=== PATIENT | male | born 1975 | race Caucasian/White ===

== ENCOUNTER 2019-09-26 17:29 | Emergency (ER) | payer OTHER, SELFPAY ==
[2019-09-26 17:47] VITALS: BP 144/85; PULSE 77; RESP 18; TEMP 36.2; O2SAT 96; BMI 35.6
[2019-09-26 18:23] LABS: Influenza A - CEPHEID Flu A NEGATIVE (NEGATIVE); Influenza B - CEPHEID Flu B NEGATIVE (NEGATIVE)
[2019-09-26] MEDS: ACETAMINOPHEN 325 MG TABLET 650 MG PO (18:41)
[2019-09-26] MEDS: IBUPROFEN 400 MG TABLET PO (18:41)
--- NOTE | 2019-09-26 19:09 | ED.URI ---
HPI - URI/Sore Throat <PARVIZ Pereira - Last Filed: 09/26/19 19:29> General Chief Complaint: Upper Respiratory Symptoms Stated Complaint: chest tight,bad sore throat, aches, fever Time Seen by Provider: 09/26/19 18:04 Source: patient Mode of arrival: Ambulatory Limitations: no limitations History of Present Illness HPI Narrative: This is a 44-year-old male, nonsmoker, who presents to ED with concerns for alvarez virus exposure. Patient had a contact with his co-worker about a week ago who is currently self quarantine after he was expososed from his significant other who was diagnosed with coronal virus. Patient started his symptoms about 5 days ago with sore throat chest tightness and runny nose which got worse with body aches, chills, subjective fever since yesterday. Patient also reports decreased appetite and loose stools. Patient denies recent foreign travel. Patient's has MS and his concerned for his . Patient denies chronic medical illnesses. Related Data Previous Rx's Medication Instructions Recorded albuterol sulfate [Proventil HFA] 1 puff INH SEE INSTRUCTIONS #17 gm 10/02/16 lisinopril 20 mg tablet 20 mg PO BID #180 tab 09/21/19 Allergies Allergy/AdvReac Type Severity Reaction Status Date / Time latex [LATEX] Allergy Unknown ANAPHYLAXSI Verified 09/21/19 09:00 S Review of Systems <PARVIZ Pereira - Last Filed: 09/26/19 19:29> Review of Systems Narrative: General: Denies(+) subjective fever, (+) chills, fatigue, malaise, sweats. HEENT: Denies sinus pain, ear pain, (+) sore throat, difficulty swallowing, dizziness. Respiratory: Denies dyspnea, (+) mild cough, wheezing, hemoptysis, sputum. Cardiovascular: Denies (+) chest tightness, palpitations, orthopnea, edema. Gastrointestinal: Denies nausea, vomiting, abdominal pain, (+) diarrhea, constipation, melena. : Denies dysuria, frequency, incontinence, hematuria, urinary retention. Musculoskeletal: Denies weakness, joint pain or bony pain. Skin: Denies rash, skin lesions, or other. Neurologic: Denies weakness, headache, numbness, change in speech, confusion, seizures, incoordination. Psychiatric: No concerning psychosocial issues. 12-point review of systems is negative except for those stated above. Patient History <PARVIZ Pereira - Last Filed: 09/26/19 19:29> Medical History Allergic rhinitis (Acute) Hypertension (Chronic ~2016) Family History Father History of heart disease Grandfather History of heart disease Grandmother Cancer Social History Smoking Status: Never smoker Smoking Status: Never smoker Exam <PARVIZ Pereira - Last Filed: 09/26/19 19:29> Narrative Exam Narrative: GEN: Alert, oriented x 3, well appearing and nourished, and in no acute distress. Head: Normal cephalic, atraumatic. No scalp or temporal tenderness, palpable mass or rash. EYES: Pupils are equal, round, and reactive to light and accommodation. Extraocular muscles are intact bilaterally. There is no subconjunctival hemorrhage, exudate and sclera non-icteric. ENT: Bilateral auditory canals and tympanic membranes clear. Hearing grossly intact. Nose without bleeding, purulent discharge or deviation. Turbinates swollen and a rate much test. Facial sinuses nontender to palpate. Mucous membrane moist, no mucosal lesion. Throat with erythema but no tonsillar hypertrophy or exudate. Uvula in midline, airway patent. Neck: Trachea in midline. No JVD, non-tender without lymphadenopathy. No masses or thyroid megaly. Supple, non-tender and no meningeal signs. CARDIAC: Normal regular rate and rhythm without murmurs, gallops, or rubs. No chest wall tenderness. No peripheral edema, cyanosis or pallor. Capillary refill is less than 2 seconds. RESPIRATORY: Lungs are clear to auscultate bilaterally. No cough, wheezes, rales, or rhonchi. No stridor, respiratory distress, increase work of breathing, or accessary muscle used. ABD: Abdomen soft, nontender and non-distended. No guarding or rebound tenderness to palpate. Bowel sounds are normal in all 4 quadrants. There is no palpable masses or organomegaly. EXT: Full painless ROM of all extremities with no loss of sensation, strength, effusion or edema. SKIN: Warm, dry, normal color for patient. No erythema, lesions or rash over visible areas. BACK: Nontender without deformity or crepitance. No flank tenderness. NEUROLOGICAL: Alert and oriented to place, time and person. Sensation and motor function intact bilaterally. No facial droops, dysphasia. PSYCHIATRIC: Good judgement and reason, without hallucinations, abnormal affect or abnormal behaviors during the examination. Initial Vital Signs Initial Vital Signs: Vital Signs Temperature 97.1 F L 09/26/19 17:47 Pulse Rate 77 09/26/19 17:47 Respiratory Rate 18 09/26/19 17:47 Blood Pressure 144/85 H 09/26/19 17:47 Pulse Oximetry 96 09/26/19 17:47 <Michael Marinelli DO - Last Filed: 09/26/19 20:35> Initial Vital Signs Initial Vital Signs: Vital Signs Temperature 97.1 F L 09/26/19 17:47 Pulse Rate 77 09/26/19 17:47 Respiratory Rate 18 09/26/19 17:47 Blood Pressure 144/85 H 09/26/19 17:47 Pulse Oximetry 96 09/26/19 17:47 Scores <PARVIZ Pereira - Last Filed: 09/26/19 19:29> GCS [place] coma scale eye opening: Spontaneous [place] coma scale verbal response: Orientated [place] coma scale motor response: Obey commands [place] coma scale total score: 15 Course <PARVIZ Pereira - Last Filed: 09/26/19 19:29> Orders Ordered: ED Orders 09/26/19 17:42 Influenza A & B (PCR) Stat Strep Grp A by PCR Rapid Stat Discontinued Medications Acetaminophen (Tylenol) 650 mg PO NOW ONE Stop: 09/26/19 18:20 Last Admin: 09/26/19 18:41 Dose: 650 mg Documented by: DIO Ibuprofen (Advil) 400 mg PO NOW ONE Stop: 09/26/19 18:20 Last Admin: 09/26/19 18:41 Dose: 400 mg Documented by: DIO Vital Signs Vital signs: Vital Signs - 8 hr 09/26/19 17:47 09/26/19 19:45 Temperature 97.1 F L 99.1 F Pulse Rate 77 80 Respiratory Rate 18 20 Blood Pressure 144/85 H Blood Pressure [Left Arm] 125/72 Pulse Oximetry 96 99 <Michael Marinelli DO - Last Filed: 09/26/19 20:35> Orders Ordered: ED Orders 09/26/19 17:42 Influenza A & B (PCR) Stat Strep Grp A by PCR Rapid Stat Discontinued Medications Acetaminophen (Tylenol) 650 mg PO NOW ONE Stop: 09/26/19 18:20 Last Admin: 09/26/19 18:41 Dose: 650 mg Documented by: DIO Ibuprofen (Advil) 400 mg PO NOW ONE Stop: 09/26/19 18:20 Last Admin: 09/26/19 18:41 Dose: 400 mg Documented by: DIO Vital Signs Vital signs: Vital Signs - 8 hr 09/26/19 17:47 09/26/19 19:45 Temperature 97.1 F L 99.1 F Pulse Rate 77 80 Respiratory Rate 18 20 Blood Pressure 144/85 H Blood Pressure [Left Arm] 125/72 Pulse Oximetry 96 99 MDM - URI/Sore Throat <PARVIZ Pereira - Last Filed: 09/26/19 19:29> Differential Diagnosis Differential diagnosis: Likely upper respiratory infection, viral infection, influenza and pharyngitis Medical Records Attestation: I reviewed the patient's medical records. Lab Data Attestation: I reviewed the patient's lab results. Labs: Lab Results 09/26/19 09/26/19 Range/Units 17:42 17:42 Influenza A (RT-PCR) Flu a negative (NEGATIVE) Influenza B (RT-PCR) Flu b negative (NEGATIVE) Group A Strep (PCR) Negative Point of Care Testing Rapid Strep A Negative MDM Narrative Medical decision making narrative: This is a 44-year-old gentleman who presents to ED with concerns for coronavirus exposure and upper respiratory infection symptoms. Patient reports chest tightness, runny nose, sore throat, body aches, chills, subjective fever. Flu swab was negative today. Strep throat test was negative. Patient was medicated with Tylenol which patient found to be helpful with his discomfort. Coronary virus test is send out and patient informed that he will be in contact with the result. Work off note provided for 5 days until patient hears back with the result and advised to self isolate himself with supportive care and rest. Return precautions were discussed with the patient and patient verbalized understanding in agreement with the treatment plan. <Michael Marinelli, DO - Last Filed: 09/26/19 20:35> Lab Data Labs: Lab Results 09/26/19 09/26/19 Range/Units 17:42 17:42 Influenza A (RT-PCR) Flu a negative (NEGATIVE) Influenza B (RT-PCR) Flu b negative (NEGATIVE) Group A Strep (PCR) Negative Point of Care Testing Rapid Strep A Negative Discharge Plan Departure Patient Disposition: Home Clinical Impression: Viral infection Upper respiratory infection Qualifiers: URI type: unspecified URI Qualified Code(s): J06.9 - Acute upper respiratory infection, unspecified Discharge Date/Time: 09/26/19 19:48 Instructions: DI for Viral Upper Respiratory Infection -- Adult Activity Restrictions/Additional Instructions: You have been diagnosed with [ viral respiratory illness. Strep throat swab was negative. Influenza test was negative. Alvarez virus test has been sent out to lab and this will not be resulted till 3-5 days. Please self quarantine your self if you are concerned for alvarez virus and until you hear from us. If the test returns with positive result, you will have to self isolate up to 2-3 weeks until you are fever free for 72 hours or feeling well whichever comes later. Please continue with supportive care with [id number] Tylenol and or Motrin as needed for discomfort. Warm salt water gargle helps with sore throat. You can use throat lozenges as well. Good hand/cough hygiene will help prevent transmitting illness to others]. What to do: *Take your medications as directed. You can take [id number] Mucinex for cold symptoms. Please hydrate yourself well and rest. *Follow up with your primary care provider, call for an appointment. Let them know you were seen in the ED and that we asked you to be seen in follow up. *Return to ED if you have any new, worsening, or concerning symptoms, such as [chest pain, breathing difficulty, unable to tolerate fluids, fever not managed with Tylenol and or Motrin, or any acute concerns]. Prescriptions: No Action albuterol sulfate [Proventil HFA] 90 MCG/PUFF HFA aerosol inhaler 1 puff INH SEE INSTRUCTIONS Qty: 17 RF: 6 lisinopril 20 mg tablet 20 mg PO BID Qty: 180 RF: 3 Referrals: Celian Donis ARNP [[facility] [employer]] - Stand Alone Forms: Work Release Note <Michael Marinelli DO - Last Filed: 09/26/19 20:35> Sign Out Provider Sign Out Attestation: Dr Marinelli Co-Sign Statement: I was available for consultation during this patient's emergency department visit. This chart is signed by myself for administrative purposes only. I did not have direct contact with this patient during this visit. They were seen independently by the APC.
[2019-09-26 19:10] LABS: Strep Grp A by PCR Rapid Negative
[2019-09-26 19:45] VITALS: BP 125/72; PULSE 80; RESP 20; TEMP 37.3; O2SAT 99
[2019-10-04 12:22] LABS: COVID19 Sendout Not Detected (Not Detected)
== END 2019-09-26 19:48 | disposition home or self-care (01) ==
PROVIDERS: Emergency Medicine; Emergency Provider Nurse Practitioner Family; Family Provider Family Medicine
DX: Z20.828 Contact with and (suspected) exposure to other viral communicable diseases (principal); J06.9 Acute upper respiratory infection, unspecified
CPT/HCPCS: 87502; 87635; 87651; 87880; 99282; 99283

== ENCOUNTER 2020-02-09 23:52 | Emergency (ER) | payer OTHER, SELFPAY ==
[2020-02-09 23:57] VITALS: BP 186/106
[2020-02-09 23:58] VITALS: PULSE 71; RESP 19; O2SAT 100
[2020-02-10] VITALS (7 sets, daily range): BP systolic 135–186; BP diastolic 87–108; PULSE 63–87; RESP 10–23; TEMP 36.2; O2SAT 95–100; BMI 35.2
--- NOTE | 2020-02-10 00:02 | DI.RAD.S_ITS ---
PROCEDURE: XR CHEST 1V INDICATIONS: chest pain TECHNIQUE: One view of the chest was acquired. COMPARISON: [facility], , CHEST 1 VIEW, 07/29/2017, 16:22. FINDINGS: Surgical changes and devices: None. Lungs and pleura: Lungs are clear. No pleural effusions or pneumothorax. Mediastinum: Mediastinal contours appear normal. Heart size is normal. Bones and chest wall: No suspicious bony lesions. Overlying soft tissues appear unremarkable. IMPRESSION: No acute cardiopulmonary disease process. Dictated by: Lalitha Chow MD, PhD on 02/10/2020 at 8:01 Approved by: Lalitha Chow MD, PhD on 02/10/2020 at 8:01
[2020-02-10 00:12] LABS: Add Manual Diff / Slide Review NO; Basophils Absolute Auto 100 /uL (0-100); Basophils Percent Auto 1.2 % (0-2); Eosinophils Absolute Auto 200 /uL (0-450); Hematocrit 41.7 % (41-53); Lymphocytes Absolute Auto 2600 /uL (1100-4500); Lymphocytes Percent Auto 32.6 % (25-40); Mean Corpuscular HGB Conc 33.7 % (30-36); Mean Corpuscular Hemoglobin 29.5 PG (26-34); Mean Corpuscular Volume 87.5 fL (80-100); Monocytes Absolute Auto 700 /uL (0-900); Monocytes Percent Auto 8.8 % (3-14); Neutrophils Absolute Auto 4300 /uL (1500-7000); Neutrophils Percent Auto 54.4 % (50-75); Platelet Count 188 X10^3/uL (150-400); Red Blood Cell Count 4.76 X10^6/uL (4.5-5.9); Red Cell Distribution Width 13.4 % (11.6-14.8); White Blood Cell Count 7.9 X10^3/uL (4.5-11.0)
[2020-02-10 00:13] LABS: Prothrombin Time 11.8 SECONDS (10.1-12.7)
[2020-02-10 00:15] LABS: PTT Partial Thromboplastin Tim 37 SECONDS (26.4-36.2)
[2020-02-10 00:17] LABS: Alanine Aminotransferase 35 IU/L (<50); Albumin 4.7 g/dL (3.5-5.0); Albumin Globulin Ratio 1.5 (1.0-2.8); Alkaline Phosphatase 50 U/L (38-126); Aspartate Aminotransferase 33 IU/L (17-59); BUN Creatinine Ratio 20.4 (6-22); Bilirubin Total 0.4 mg/dL (0.2-1.3); Blood Urea Nitrogen 21 mg/dL (9-20); Carbon Dioxide 31 mmol/L (22-32); Chloride 99 mmol/L (98-107); Creatine Kinase 213 U/L (55-170); Estimated Glomerular Filt Rate > 60.0 mL/min (>60); Globulin 3.1 g/dL (1.7-4.1); Glucose 93 mg/dL (70-100); HEMOLYSIS < 15 (0-50); Lipase 80 U/L (23-300); Potassium 3.8 mmol/L (3.4-5.1); Sodium 138 mmol/L (137-145); Total Protein 7.8 g/dL (6.3-8.2)
--- NOTE | 2020-02-10 00:23 | ED_ITS ---
HPI - Chest Pain General Chief Complaint: Chest Pain Stated Complaint: chest discomfort BP 170/120 lightheaded Time Seen by Provider: 02/09/20 23:54 Source: patient Mode of arrival: Family Vehicle Limitations: no limitations History of Present Illness HPI narrative: 45-year-old gentleman with a history of hypertension presents with 3 days of increased blood pressures despite taking his usual lisinopril 20 mg b.i.d., chest tightness, near syncope/dizziness/head fullness feeling when his blood pressures are elevated, exertional dyspnea, and increasing fatigue. No fevers, cough, chills, vomiting, diarrhea, abdominal pain, lower extremity edema, palpitations, numbness/tingling/acute neurologic changes aside from the head fullness. Related Data Previous Rx's Medication Instructions Recorded lisinopril 20 mg tablet 20 mg PO BID #180 tab 10/12/19 albuterol sulfate 90 mcg/actuation 1 puff INHALATION Q4-6H PRN #17 10/14/19 aerosol inhaler gram Allergies Allergy/AdvReac Type Severity Reaction Status Date / Time latex [LATEX] Allergy Unknown ANAPHYLAXSI Verified 01/14/20 10:14 S Review of Systems Review of Systems Narrative: Pertinent positive and negative findings as per HPI Remainder of review of systems is otherwise unremarkable for Constitutional: Fevers, chills, weakness ENT: No sore throat, neck pain, ear pain : Dysuria, hematuria, flank pain MS: Muscle weakness, numbness, joint swelling or warmth Skin: Rashes, nonhealing lesions Endocrine: heat or cold intolerance, very dry skin Patient History Medical History Allergic rhinitis (Acute) Encounter for wellness examination in adult (Acute) Hypertension (Chronic ~2016) Witnessed apneic spells (Acute) Family History Father History of heart disease Grandfather History of heart disease Grandmother Cancer Social History Smoking Status: Never smoker Smoking Status: Never smoker alcohol intake frequency: a few times a week Substance Use Type: does not use Exam Narrative Exam Narrative: General: Healthy appearing, in no acute distress. Able to give a complete and coherent history. Well-nourished well-developed HEENT: Moist mucous membranes, normal sclera with reactive pupils, Neck: No JVD, supple Respiratory: Lungs are clear to auscultation, no wheezing no rales no rhonchi. Full and symmetrical air movement Cardiac: Regular rate and rhythm no murmurs no bruits Abdomen: Soft nontender good bowel tones, no flank pain Skin: Warm and dry, no rashes Neurologic: Grossly neurologically intact with no obvious asymmetries or abnormalities Extremities: No trauma, well perfused Psych: Cooperative, appropriate insight and affect Initial Vital Signs Initial Vital Signs: Vital Signs Blood Pressure 186/106 H 02/09/20 23:57 Course Orders Ordered: ED Orders 02/10/20 00:00 Complete Blood Count AUTO DIFF Stat Comprehensive Metabolic Panel Stat Lipase Stat Partial Thromboplastin Time Stat Prothrombin Time INR Stat Troponin & CK Cardiac Panel Stat 02/10/20 00:02 XR chest 1V Stat EKG-12 Lead Stat Discontinued Medications Amlodipine Besylate (Norvasc) 10 mg PO NOW ONE Stop: 02/10/20 00:45 Last Admin: 02/10/20 00:58 Dose: 10 mg Documented by: ES Vital Signs Vital signs: Vital Signs - 8 hr 02/09/20 23:57 02/09/20 23:58 02/10/20 00:00 Temperature Pulse Rate 71 69 Respiratory Rate 19 12 Blood Pressure 186/106 H 168/103 H Pulse Oximetry 100 100 02/10/20 00:03 02/10/20 00:30 02/10/20 01:00 Temperature 97.2 F L Pulse Rate 87 71 66 Respiratory Rate 15 23 10 L Blood Pressure 186/106 H 159/108 H 144/97 H Pulse Oximetry 99 98 97 02/10/20 01:30 02/10/20 02:00 02/10/20 02:30 Temperature Pulse Rate 69 63 65 Respiratory Rate 13 12 11 L Blood Pressure 144/91 H 135/87 142/91 H Pulse Oximetry 96 95 96 MDM - Chest Pain Medical Records Data Attestation: I reviewed the patient's medical records. Lab Data Attestation: I reviewed the patient's lab results. Result diagrams: 02/10/20 00:00 02/10/20 00:00 Labs: Lab Results 02/10/20 02/10/20 02/10/20 Range/Units 00:00 00:00 00:00 WBC 7.9 (4.5-11.0) X10^3/uL RBC 4.76 (4.5-5.9) X10^6/uL Hgb 14.0 (13.5-17.5) g/dL Hct 41.7 (41-53) % MCV 87.5 (80-100) fL MCH 29.5 (26-34) PG MCHC 33.7 (30-36) % RDW 13.4 (11.6-14.8) % Plt Count 188 (150-400) X10^3/uL Neut % (Auto) 54.4 (50-75) % Lymph % (Auto) 32.6 (25-40) % [place] % (Auto) 8.8 (3-14) % Eos % (Auto) 3.0 (2-4) % Baso % (Auto) 1.2 (0-2) % Neut # (Auto) 4300 (1297-1923) /uL Lymph # (Auto) 2600 (4024-7689) /uL [place] # (Auto) 700 (0-900) /uL Eos # (Auto) 200 (0-450) /uL Baso # (Auto) 100 (0-100) /uL PT 11.8 (10.1-12.7) SECONDS INR 1.0 (0.9-1.3) APTT 37 H (26.4-36.2) SECONDS Sodium 138 (137-145) mmol/L Potassium 3.8 (3.4-5.1) mmol/L Chloride 99 (98-107) mmol/L Carbon Dioxide 31 (22-32) mmol/L BUN 21 H (9-20) mg/dL Creatinine 1.03 (0.66-1.25) mg/dL Estimated GFR > 60.0 (>60) mL/min BUN/Creatinine Ratio 20.4 (6-22) Glucose 93 (70-100) mg/dL Calcium 10.0 (8.4-10.2) mg/dL Total Bilirubin 0.4 (0.2-1.3) mg/dL AST 33 (17-59) IU/L ALT 35 (<50) IU/L Alkaline Phosphatase 50 (38-126) U/L Total Creatine Kinase 213 H (55-170) U/L CK-MB (CK-2) 2.71 H (<2.37) ng/mL CK-MB (CK-2) Rel Index 1.3 L (1.5-5.0) % Troponin I < 0.012 (0.01-0.034) ng/mL Total Protein 7.8 (6.3-8.2) g/dL Albumin 4.7 (3.5-5.0) g/dL Globulin 3.1 (1.7-4.1) g/dL Albumin/Globulin Ratio 1.5 (1.0-2.8) Lipase 80 (23-300) U/L Imaging Data Chest x-ray: Attestation: I personally reviewed and interpreted this imaging study as follows: My Impression: Unremarkable chest x-ray. No infiltrates, normal cardiac silhouette, no congestive heart failure, no pleural effusion and normal mediastinum ECG Data Attestation: I personally reviewed and interpreted this ECG as follows: Interpretation: Sinus rhythm at a rate of 72 normal intervals, no acute STT wave changes No ischemic findings MDM Narrative Medical decision making narrative: Three days of increasing cardiovascular and neurologic symptoms in the setting of elevated blood pressure. Etiology is uncertain. No acute coronary syndrome or renal failure at this time. 10 mg of oral amlodipine is added and blood pressure has responded nicely. He is feeling better at this time with no chest pain or dyspnea. He is safe for home discharge. He has a follow-up appointment with his primary care physician later today. Will opt to not discharge him with any medications but will ask him to keep that appointment with his primary care physician so that his blood pressure can be recheck and together he and his primary physician can decide if adding amlodipine to his current regimen will be the best option. Discharge Plan Departure Patient Disposition: Home Clinical Impression: Hypertension Qualifiers: Hypertension type: essential hypertension Qualified Code(s): I10 - Essential (primary) hypertension Instructions: Essential Hypertension Activity Restrictions/Additional Instructions: Thank you for coming in today. Your blood pressure was quite elevated. Your workup including chest x-ray, EKG and blood work was all very reassuring. There is no evidence of a stroke or a heart attack or heart attack like syndrome. No evidence of acute heart failure or other complications of elevated blood pressure that would require hospitalization In the emergency room you received 10 mg of amlodipine and this seemed to work nicely in bringing her blood pressure down. You have an appointment with your primary care physician in about 11 hours. Please keep this appointment. Please let her know that you are given a dose of 10 mg of amlodipine and see how your feeling by mid day including seeing what your blood pressure reading is. Please do take your morning dose of lisinopril today. If you have worsening blood pressure, chest pain, numbness tingling dizziness or other new complaints please return to the emergency room for further evaluation Prescriptions: No Action lisinopril 20 mg tablet 20 mg PO BID Qty: 180 RF: 3 albuterol sulfate [Proventil HFA] 90 mcg/actuation HFA aerosol inhaler 1 puff inhalation Q4-6H PRN (Reason: shortness of breath or wheezing) Qty: 17 RF: 3 Referrals: Celina Donis ARNP [Primary Care Provider] -
[2020-02-10 00:28] LABS: Troponin I < 0.012 ng/mL (0.01-0.034)
[2020-02-10 00:32] LABS: CKMB % Relative Index 1.3 % (1.5-5.0); Creatine Kinase MB 2.71 ng/mL (<2.37)
[2020-02-10] MEDS: AMLODIPINE 2.5 MG TABLET 10 MG PO (00:58)
== END 2020-02-10 03:17 | disposition home or self-care (01) ==
PROVIDERS: Emergency Provider Emergency Medicine; Family Provider Family Medicine; PCP Nurse Practitioner
DX: I10 Essential (primary) hypertension (principal); R06.00 Dyspnea, unspecified; R07.9 Chest pain, unspecified
CPT/HCPCS: 36415; 71045; 80053; 82550; 82553; 83690; 84484; 85025; 85610; 85730; 93005; 99284

== ENCOUNTER → 2020-03-18 13:22 | Outpatient (CLI) | payer OTHER, SELFPAY ==
[2020-03-21 12:03] LABS: COVID19 Sendout Not Detected (Not Detect)
== END ==
PROVIDERS: Family Provider Family Medicine; PCP Nurse Practitioner; Visit Provider Physician Assistant
DX: Z11.59 Encounter for screening for other viral diseases (principal)
CPT/HCPCS: 87635

== ENCOUNTER → 2020-04-01 14:08 | Outpatient (CLI) | payer OTHER, SELFPAY ==
[2020-04-03 15:04] LABS: COVID19 Sendout Not Detected (Not Detect)
== END ==
PROVIDERS: Family Provider Family Medicine; PCP Nurse Practitioner; Visit Provider Physician Assistant
DX: Z11.59 Encounter for screening for other viral diseases (principal)
CPT/HCPCS: 87635

== ENCOUNTER 2020-11-13 22:23 | Emergency (ER) | payer OTHER, SELFPAY ==
[2020-11-13 22:36] VITALS: BP 168/98; PULSE 90; RESP 20; TEMP 37.1; O2SAT 100
--- NOTE | 2020-11-13 22:36 | DI.RAD.S_ITS ---
PROCEDURE: XR CHEST 1V INDICATIONS: chest pain TECHNIQUE: One view of the chest was acquired. COMPARISON: [facility], CR, XR CHEST 1V, 02/10/2020, 0:05. FINDINGS: Surgical changes and devices: None. Lungs and pleura: Lungs are clear. No pleural effusions or pneumothorax. Mediastinum: Mediastinal contours appear normal. Heart size is normal. Bones and chest wall: No suspicious bony lesions. Overlying soft tissues appear unremarkable. IMPRESSION: No acute cardiopulmonary disease process. Dictated by: Lalitha Chow MD, PhD on 11/14/2020 at 9:54 Approved by: Lalitha Chow MD, PhD on 11/14/2020 at 9:56
[2020-11-13 22:47] LABS: Add Manual Diff / Slide Review NO; Basophils Absolute Auto 100 /uL (0-100); Eosinophils Absolute Auto 300 /uL (0-450); Eosinophils Percent Auto 2.9 % (2-4); Hematocrit 40.9 % (41-53); Hemoglobin 13.6 g/dL (13.5-17.5); Lymphocytes Absolute Auto 2300 /uL (1100-4500); Lymphocytes Percent Auto 25.1 % (25-40); Mean Corpuscular HGB Conc 33.3 % (30-36); Mean Corpuscular Hemoglobin 29.1 PG (26-34); Mean Corpuscular Volume 87.2 fL (80-100); Monocytes Absolute Auto 900 /uL (0-900); Monocytes Percent Auto 9.7 % (3-14); Neutrophils Absolute Auto 5600 /uL (1500-7000); Neutrophils Percent Auto 61.3 % (50-75); Platelet Count 207 X10^3/uL (150-400); Red Blood Cell Count 4.69 X10^6/uL (4.5-5.9); Red Cell Distribution Width 13.6 % (11.6-14.8); White Blood Cell Count 9.2 X10^3/uL (4.5-11.0)
[2020-11-13 22:58] LABS: Alanine Aminotransferase 35 IU/L (<50); Albumin 4.6 g/dL (3.5-5.0); Albumin Globulin Ratio 1.4 (1.0-2.8); Alkaline Phosphatase 57 U/L (38-126); Aspartate Aminotransferase 33 IU/L (17-59); BUN Creatinine Ratio 16.9 (6-22); Bilirubin Total 0.3 mg/dL (0.2-1.3); Blood Urea Nitrogen 20 mg/dL (9-20); Calcium 9.6 mg/dL (8.4-10.2); Carbon Dioxide 29 mmol/L (22-32); Chloride 102 mmol/L (98-107); Creatine Kinase 203 U/L (55-170); Estimated Glomerular Filt Rate > 60.0 mL/min (>60); Globulin 3.4 g/dL (1.7-4.1); Glucose 91 mg/dL (70-100); HEMOLYSIS < 15 (0-50); Lipase 108 U/L (23-300); Potassium 3.8 mmol/L (3.4-5.1); Sodium 140 mmol/L (137-145)
[2020-11-13] MEDS: SODIUM CHLORIDE 0.9% 1,000 ML 150 ML IV (23:01)
[2020-11-13 23:05] VITALS: BP 128/83; PULSE 89; RESP 18; O2SAT 95
[2020-11-13 23:10] LABS: Troponin I < 0.012 ng/mL (0.01-0.034)
[2020-11-13 23:13] LABS: CKMB % Relative Index 1.2 % (1.5-5.0); Creatine Kinase MB 2.46 ng/mL (<2.37)
--- NOTE | 2020-11-13 23:19 | ED_ITS ---
HPI - Chest Pain General Chief Complaint: Chest Pain Stated Complaint: Chest pain, headache Time Seen by Provider: 11/13/20 22:25 Source: patient Mode of arrival: Ambulatory Limitations: no limitations History of Present Illness HPI narrative: 45M nonsmoker with history of hypertension and asthma presents with a chief complaint of a very brief episode of sharp and stabbing anterior chest pain about 15 minutes prior to his arrival. He had been in his normal state of health and was walking up some stairs when he felt these symptoms. The chest pain was brief but in the aftermath he was left with a mild left-sided headache in the absence of any neurologic symptoms such as blurred vision, trouble with speech. He has no recent injury, denies any fever or chills and takes no blood thinners. He states that he and has had no shortness of breath or cough with hemoptysis. He denies recent travel, history of blood clot or cancer. He states that he is very healthy and works out multiple times a week with a development trainer and has had no exertional symptoms at any point, never any symptoms such as this, no unexplained fatigue or diaphoresis. Patient's symptoms had resolved prior to his arrival. His headache was mild and ?singing ?on the left side of his head and without any obvious provocation, palliation or radiation. He denies any neck pain. MD complaint: chest pain Onset (ago): minute(s) Duration: intermittent and now resolved Onset: during exertion Pain location: substernal Severity: mild Quality: sharp Pain radiation: none Relieving factors: nothing Exacerbating factors: nothing Treatments prior to arrival chest pain: none Related Data Previous Rx's Medication Instructions Recorded albuterol sulfate 90 mcg/actuation 1 puff INHALATION Q4-6H PRN #17 10/14/19 aerosol inhaler gram amlodipine 10 mg tablet 10 mg PO DAILY #90 tab 10/05/20 gabapentin 100 mg capsule 100 mg PO BEDTIME #90 cap 10/05/20 lisinopril 20 mg tablet 20 mg PO BID #180 tab 10/05/20 Allergies Allergy/AdvReac Type Severity Reaction Status Date / Time latex [LATEX] Allergy Unknown ANAPHYLAXSI Verified 01/14/20 10:14 S Review of Systems Constitutional Constitutional: Denies chills, Denies fatigue, Denies fever(s), Denies frequent falls, Reports headache(s), Denies lethargy and Denies weakness Eyes Eyes: Denies change in vision, Denies eye discharge, Denies irritation and Denies loss of vision ENT Ears, Nose, Mouth, and Throat: Denies change in voice, Denies dizziness, Reports headache(s), Denies neck pain, Denies sore throat and Denies throat swelling Cardiovascular Cardiovascular: Reports chest pain, Denies irregular heart rhythm, Denies lightheadedness, Denies palpitations, Denies dyspnea, Denies dyspnea on exertion and Denies orthopnea Respiratory Respiratory: Denies cough, Denies dyspnea, Denies dyspnea on exertion and Denies wheezing Gastrointestinal Gastrointestinal: Denies abdominal pain, Denies change in bowel habits, Denies diarrhea, Denies nausea and Denies vomiting Musculoskeletal Musculoskeletal: Denies neck pain and Denies numbness Integumentary/Breasts Skin/Breast: Denies pruritus, Denies erythema, Denies rash and Denies wounds Neurologic Neurologic: Denies behavioral changes, Denies confusion, Denies dizziness, Denies frequent falls, Reports headache(s), Denies loss of vision, Denies numbness and Denies weakness Psychiatric Psychiatric: Denies anxiety, Denies behavioral changes, Denies confusion, Denies depression, Denies homicidal ideation and Denies suicidal ideation Endocrine Endocrine: Denies fatigue, Denies flushing and Denies palpitations Hematologic/Lymphatic Hematologic/Lymphatic: Denies easy bruising Allergic/Immunologic Allergic/Immunologic: Denies urticaria, Denies throat swelling and Denies wheezing Patient History Medical History Allergic rhinitis Continuous opioid dependence (11/08/14) Encounter for monitoring Suboxone maintenance therapy (09/16/15) Encounter for wellness examination in adult Hyperlipidemia (11/08/14) Hypertension (~2015) Insomnia (04/11/15) Obesity (BMI 30-39.9) Obstructive sleep apnea (03/20/20) Family History Father History of heart disease Loud snoring Hypertension Grandfather History of heart disease Grandmother Cancer Mother Depression Anxiety Family/Other Bipolar disorder Social History Smoking Status: Never smoker alcohol intake: current (2-3 drinks weekly) substance use type: does not use Smoking Status: Never smoker alcohol intake frequency: a few times a week Substance Use Type: does not use Exam Narrative Exam Narrative: GENERAL: [45] year old patient appears stated age. Well- nourished, well-developed patient, in mild distress. HEAD: Atraumatic. Normocephalic. No tenderness to palpation EYES: Pupils equal round and reactive. Extraocular motions intact. No scleral icterus. No injection or drainage. ENT: Nose without bleeding, purulent drainage. Throat without erythema, tonsillar hypertrophy or exudate. Airway patent. NECK: Trachea midline. Non tender, no meningeal signs CARDIOVASCULAR: Regular rate and rhythm without murmurs, gallops, or rubs. RESPIRATORY: Clear to auscultation. Breath sounds equal bilaterally. No wheezes, rales, or rhonchi. GASTROINTESTINAL: Abdomen soft, non-tender, nondistended. EXTREMITIES: No edema or joint tenderness. BACK: Nontender without deformity or crepitance. No flank tenderness. NEURO: AOx3. SKIN: No rash or erythema of visible areas Initial Vital Signs Initial Vital Signs: Vital Signs Temperature 98.7 F 11/13/20 22:36 Pulse Rate 90 11/13/20 22:36 Respiratory Rate 20 11/13/20 22:36 Blood Pressure 168/98 H 11/13/20 22:36 Pulse Oximetry 100 11/13/20 22:36 Scores HEART Score Heart Score history: Slightly Suspicious Heart Score EKG: Normal Heart Score Age: < 45 years old Heart Score risk factors: 1-2 risk factors Heart Score troponin: < or = to normal limit Heart Score Total: 1 Course Orders Ordered: ED Orders 11/13/20 22:36 XR chest 1V Stat 11/13/20 22:40 Complete Blood Count AUTO DIFF Stat Comprehensive Metabolic Panel Stat Lipase Stat Troponin & CK Cardiac Panel Stat 11/14/20 00:40 Troponin I Stat Discontinued Medications Sodium Chloride (Normal Saline 0.9%) 1,000 mls @ 150 mls/hr IV CONT JASON Last Infusion: 11/14/20 02:17 Dose: 0 mls/hr Documented by: Admin: 11/13/20 23:01 Dose: 150 mls/hr Documented by: TAMMY Vital Signs Vital signs: Vital Signs - 8 hr 11/13/20 22:36 11/13/20 23:05 11/13/20 23:30 Temperature 98.7 F Pulse Rate 90 89 85 Respiratory Rate 20 18 15 Blood Pressure 168/98 H 128/83 126/82 Pulse Oximetry 100 95 95 11/14/20 00:00 11/14/20 00:30 11/14/20 01:00 Temperature Pulse Rate 91 H 86 78 Respiratory Rate 24 17 10 L Blood Pressure 129/79 122/77 122/78 Pulse Oximetry 94 93 93 11/14/20 01:30 11/14/20 02:00 Temperature Pulse Rate 77 82 Respiratory Rate 13 16 Blood Pressure 112/76 114/75 Pulse Oximetry 93 94 MDM - Chest Pain Lab Data Result diagrams: 11/13/20 22:40 11/13/20 22:40 Labs: Lab Results 11/13/20 11/13/20 11/14/20 Range/Units 22:40 22:40 00:40 WBC 9.2 (4.5-11.0) X10^3/uL RBC 4.69 (4.5-5.9) X10^6/uL Hgb 13.6 (13.5-17.5) g/dL Hct 40.9 L (41-53) % MCV 87.2 (80-100) fL MCH 29.1 (26-34) PG MCHC 33.3 (30-36) % RDW 13.6 (11.6-14.8) % Plt Count 207 (150-400) X10^3/uL Neut % (Auto) 61.3 (50-75) % Lymph % (Auto) 25.1 (25-40) % [facility] % (Auto) 9.7 (3-14) % Eos % (Auto) 2.9 (2-4) % Baso % (Auto) 1.0 (0-2) % Neut # (Auto) 5600 (4333-7437) /uL Lymph # (Auto) 2300 (1235-2939) /uL [facility] # (Auto) 900 (0-900) /uL Eos # (Auto) 300 (0-450) /uL Baso # (Auto) 100 (0-100) /uL Sodium 140 (137-145) mmol/L Potassium 3.8 (3.4-5.1) mmol/L Chloride 102 (98-107) mmol/L Carbon Dioxide 29 (22-32) mmol/L BUN 20 (9-20) mg/dL Creatinine 1.18 (0.66-1.25) mg/dL Estimated GFR > 60.0 (>60) mL/min BUN/Creatinine Ratio 16.9 (6-22) Glucose 91 (70-100) mg/dL Calcium 9.6 (8.4-10.2) mg/dL Total Bilirubin 0.3 (0.2-1.3) mg/dL AST 33 (17-59) IU/L ALT 35 (<50) IU/L Alkaline Phosphatase 57 (38-126) U/L Total Creatine Kinase 203 H (55-170) U/L CK-MB (CK-2) 2.46 H (<2.37) ng/mL CK-MB (CK-2) Rel Index 1.2 L (1.5-5.0) % Troponin I < 0.012 < 0.012 (0.01-0.034) ng/mL Total Protein 8.0 (6.3-8.2) g/dL Albumin 4.6 (3.5-5.0) g/dL Globulin 3.4 (1.7-4.1) g/dL Albumin/Globulin Ratio 1.4 (1.0-2.8) Lipase 108 (23-300) U/L MDM Narrative Medical decision making narrative: Multiple causes of chest pain considered including WA, PE, pneumothorax, pneumonia, aortic dissection, and pleurisy. Patient reports no radiation, no diaphoresis, no provocation with exertion, and no vomiting Patient is a very brief sharp and stabbing chest pain. His symptoms and exam are atypical for ischemia. Other diagnoses considered but thought unlikely given lack of correlation with history, physical and labs. Patient heart score is 1, multiple troponins ordered and unremarkable. He routinely exercises and develops no exertional symptoms. Pulmonary embolism considered but thought unlikely given negative D-dimer. Return precautions given and questions answ ered to his apparent satisfaction Discharge Plan Departure Patient Disposition: Home Clinical Impression: Atypical chest pain Instructions: DI for Atypical Chest Pain Activity Restrictions/Additional Instructions: *You have been diagnosed with [atypical chest pain. Your history, physical exam, EKG and lab work are very reassuring. There is no evidence of heart attack, blood clot, pneumonia or other obvious serous diagnosis] *What to do: *Take medications as directed *Follow up with your primary care provider in 2-3 days, call for an appointment. Let them know you were seen in the Emergency Department and that we ask that you be seen in follow up *Return to ER if you should have any new, worsening or concerning symptoms Prescriptions: No Action albuterol sulfate [Proventil HFA] 90 mcg/actuation HFA aerosol inhaler 1 puff inhalation Q4-6H PRN (Reason: shortness of breath or wheezing) Qty: 17 RF: 3 lisinopril 20 mg tablet 20 mg PO BID Qty: 180 RF: 3 amlodipine 10 mg tablet 10 mg PO DAILY Qty: 90 RF: 3 gabapentin 100 mg capsule 100 mg PO BEDTIME Qty: 90 RF: 1 Referrals: Celina Donis ARNP [Primary Care Provider] -
[2020-11-13 23:30] VITALS: BP 126/82; PULSE 85; RESP 15; O2SAT 95
[2020-11-14] VITALS: BP 129/79; PULSE 91; RESP 24; O2SAT 94
[2020-11-14 00:30] VITALS: BP 122/77; PULSE 86; RESP 17; O2SAT 93
[2020-11-14 01:00] VITALS: BP 122/78; PULSE 78; RESP 10; O2SAT 93
[2020-11-14 01:24] LABS: Troponin I < 0.012 ng/mL (0.01-0.034)
[2020-11-14 01:30] VITALS: BP 112/76; PULSE 77; RESP 13; O2SAT 93
[2020-11-14 02:00] VITALS: BP 114/75; PULSE 82; RESP 16; O2SAT 94
== END 2020-11-14 02:18 | disposition home or self-care (01) ==
PROVIDERS: Emergency Provider Emergency Medicine; PCP Nurse Practitioner
DX: R07.89 Other chest pain (principal)
CPT/HCPCS: 36415; 71045; 80053; 82550; 82553; 83690; 84484; 85025; 93005; 96360; 96361; 99284

== ENCOUNTER → 2022-04-17 09:01 | Outpatient (CLI) | payer OTHER, SELFPAY ==
[2022-04-17 09:42] LABS: Hematocrit 40.6 % (41-53); Hemoglobin 13.7 g/dL (13.5-17.5); Mean Corpuscular HGB Conc 33.8 % (30-36); Mean Corpuscular Hemoglobin 29.1 PG (26-34); Mean Corpuscular Volume 86.2 fL (80-100); Platelet Count 217 X10^3/uL (150-400); Red Blood Cell Count 4.71 X10^6/uL (4.5-5.9); Red Cell Distribution Width 13.8 % (11.6-14.8); White Blood Cell Count 5.7 X10^3/uL (4.5-11.0)
[2022-04-17 10:23] LABS: Alanine Aminotransferase 26 IU/L (<50); Albumin 4.6 g/dL (3.5-5.0); Albumin Globulin Ratio 1.4 (1.0-2.8); Alkaline Phosphatase 51 U/L (38-126); Aspartate Aminotransferase 25 IU/L (17-59); BUN Creatinine Ratio 12.8 (6-22); Bilirubin Total 0.3 mg/dL (0.2-1.3); Blood Urea Nitrogen 11 mg/dL (9-20); Calcium 8.8 mg/dL (8.4-10.2); Carbon Dioxide 28 mmol/L (22-32); Chloride 100 mmol/L (98-107); Cholesterol 189 mg/dL (140-199); Estimated Glomerular Filt Rate > 60 mL/min (>60); Globulin 3.2 g/dL (1.7-4.1); Glucose 93 mg/dL (70-100); HDL Cholesterol 36 mg/dL (40-60); HEMOLYSIS < 15 (0-50); LDL Cholesterol Calculated 129 mg/dL (<100); Potassium 4.3 mmol/L (3.4-5.1); Sodium 138 mmol/L (137-145); Total Protein 7.8 g/dL (6.3-8.2); Triglycerides 118 mg/dL (35-150)
[2022-04-17 10:46] LABS: Free T4, Direct Thyroxine 1.09 ng/dL (0.78-2.19)
[2022-04-17 10:59] LABS: Creatinine Urine Random 13.1 mg/dL; Thyroid Stimulating Hormone 1.44 uIU/mL (0.47-4.68)
[2022-04-17 11:14] LABS: Microalbumin Urine Random < 0.6 mg/dL (0-1.6)
== END ==
PROVIDERS: Family Provider Nurse Practitioner; PCP Nurse Practitioner; Referring Provider Nurse Practitioner; Visit Provider Nurse Practitioner
DX: Z00.00 Encounter for general adult medical examination without abnormal findings (principal); I10 Essential (primary) hypertension
CPT/HCPCS: 36415; 80053; 80061; 82043; 82570; 84439; 84443; 84481; 85027

== ENCOUNTER → 2022-05-31 17:13 | Outpatient (CLI) | payer OTHER, SELFPAY ==
--- NOTE | 2022-05-31 17:16 | DI.MRI.S_ITS ---
PROCEDURE: MR LUMBAR SPINE WO CON INDICATIONS: severe sciatic nerve pain x1+ years TECHNIQUE: Noncontrast sagittal T1 spin echo and T2 fast echo, sagittal STIR, and T2 fast spin echo through the lumbar spine. In cases with scoliosis, additional coronal T2 fast spin echo may be performed. COMPARISON: [facility], CT, ABDOMEN/PELVIS WITH CONTRAST, 07/30/2011, 13:45. FINDINGS: Image quality: Excellent. Alignment and Curvature: There is normal bony alignment. Bone Marrow: Marrow is of normal overall signal. No acute vertebral body compression fractures. Spinal Cord: Conus medullaris terminates at the L1 level. Visualized cord demonstrates normal signal and size. Paraspinous Soft Tissues: No paravertebral masses. T12-L1: Normal appearance. L1-L2: Normal appearance. L2-L3: Normal appearance. L3-L4: No significant abnormality is seen. L4-L5: The disc height and disk signal are well-preserved. Mild generalized disc bulge is seen. Mild facet joint hypertrophy is seen. Moderate bilateral neural foraminal narrowing is seen. The central canal is widely patent. L5-S1: No significant abnormality is seen. IMPRESSION: Focal L4-L5 degenerative change is seen, with moderate bilateral neural foraminal narrowing at this level. Dictated by: Sarwat Hwnag M.D. on 06/01/2022 at 9:15 Approved by: Sarwat Hwang M.D. on 06/01/2022 at 9:18
== END ==
PROVIDERS: Family Provider Nurse Practitioner; PCP Nurse Practitioner; Referring Provider Nurse Practitioner; Visit Provider Nurse Practitioner
DX: M54.32 Sciatica, left side (principal); M47.816 Spondylosis without myelopathy or radiculopathy, lumbar region; M48.061 Spinal stenosis, lumbar region without neurogenic claudication
CPT/HCPCS: 72148

== ENCOUNTER → 2022-10-19 11:48 | Outpatient (CLI) | payer OTHER, SELFPAY ==
[2022-10-19 12:28] LABS: Add Manual Diff / Slide Review NO; Basophils Absolute Auto 100 /uL (0-100); Eosinophils Absolute Auto 100 /uL (0-450); Eosinophils Percent Auto 1.5 % (2-4); Hemoglobin 14.4 g/dL (13.5-17.5); Lymphocytes Absolute Auto 2100 /uL (1100-4500); Mean Corpuscular HGB Conc 33.4 % (30-36); Mean Corpuscular Hemoglobin 28.9 PG (26-34); Mean Corpuscular Volume 86.5 fL (80-100); Monocytes Absolute Auto 900 /uL (0-900); Monocytes Percent Auto 9.7 % (3-14); Neutrophils Absolute Auto 5800 /uL (1500-7000); Neutrophils Percent Auto 64.8 % (50-75); Platelet Count 248 X10^3/uL (150-400); Red Blood Cell Count 4.97 X10^6/uL (4.5-5.9); Red Cell Distribution Width 14.3 % (11.6-14.8)
[2022-10-19 12:56] LABS: BUN Creatinine Ratio 14.8 (6-22); Blood Urea Nitrogen 12 mg/dL (9-20); Calcium 9.6 mg/dL (8.4-10.2); Carbon Dioxide 27 mmol/L (22-32); Chloride 102 mmol/L (98-107); Estimated Glomerular Filt Rate > 60 mL/min (>60); Glucose 88 mg/dL (70-100); HEMOLYSIS < 15 (0-50); Potassium 4.6 mmol/L (3.4-5.1); Sodium 139 mmol/L (137-145)
[2022-10-19 12:57] LABS: Appearance Urine UA CLEAR; Bilirubin Urine UA NEGATIVE (NEGATIVE); Color Urine UA YELLOW; Glucose Urine UA NEGATIVE (Negative); Ketones Urine UA NEGATIVE (NEGATIVE); Leukocyte Esterase Urine UA NEGATIVE (NEGATIVE); Nitrite Urine UA NEGATIVE (Negative); Occult Blood Urine UA NEGATIVE (Negative); Protein Urine UA 1+ (Negative); Specific Gravity Urine UA 1.015 (1.000-1.035); Urobilinogen Urine UA 0.2 E.U./dL (0.2); pH Urine UA 6.5 (4.5-8.0)
[2022-10-19 13:09] LABS: Bacteria Urine None Seen; Hyaline Casts Urine 1-5/LPF; RBC Urine 0-1/HPF (0-5/HPF); Squamous Epithelial Cell Urine 0-1 /HPF (0-5/HPF); WBC Urine 0-1/HPF (0-5/HPF)
[2022-10-19 13:10] LABS: Culture Indicated Urine Cult Not Indicated
[2022-10-21 06:36] LABS: Labcorp Hemoglobin (Hb) A1c 5.4 % (4.8-5.6)
== END ==
PROVIDERS: Family Provider Nurse Practitioner; PCP Nurse Practitioner; Referring Provider Orthopaedic Surgery; Visit Provider Orthopaedic Surgery
DX: Z01.812 Encounter for preprocedural laboratory examination (principal); Z01.818 Encounter for other preprocedural examination; R73.9 Hyperglycemia, unspecified; N39.0 Urinary tract infection, site not specified
CPT/HCPCS: 36415; 80048; 81001; 83036; 85025; 93005

== ENCOUNTER 2022-10-30 11:13 | Day surgery (SDC) | payer OTHER, SELFPAY ==
[2022-10-11 13:41] VITALS: BMI 36.8
[2022-10-30] VITALS (12 sets, daily range): BP systolic 95–129; BP diastolic 11–86; PULSE 83–109; RESP 11–222; TEMP 36.4–37.2; O2SAT 91–100; BMI 35.2
[2022-10-30] MEDS: LACTATED RINGERS 1,000 ML 100 ML IV ×3 (12:19→23:25)
[2022-10-30 12:25] LABS: COVID19 -Nasal RAPID Negative (Negative)
[2022-10-30] MEDS: VANCOMYCIN 1,000 MG/200 ML PIGGYBACK 200 MG IV (12:59)
--- NOTE | 2022-10-30 13:24 | DI.RAD.S_ITS ---
PROCEDURE: XR PELVIS 1-2V INDICATIONS: moraima TECHNIQUE: 1 view of the lower pelvis acquired. COMPARISON: None. FINDINGS: Bones: A single image obtained during the process of left hip arthroplasty demonstrates components in satisfactory position with no radiographic evidence of complications. IMPRESSION: Intraoperative image demonstrating components of arthroplasty in satisfactory position. Dictated by: Kaden Malik M.D. on 10/30/2022 at 17:45 Approved by: Kaden Malik M.D. on 10/30/2022 at 17:46
[2022-10-30] MEDS: ACETAMINOPHEN 325 MG TABLET 975 MG PO (13:59)
[2022-10-30] MEDS: CELECOXIB 200 MG CAPSULE PO (14:00)
--- NOTE | 2022-10-30 14:05 | PM.PREOP ---
Pre-operative Note Interval Note History & Physical reviewed/Exam performed by Physician: Yes Changes to H&P: No
--- NOTE | 2022-10-30 14:06 | P.OP_ITS ---
Operative Date/Time/Diagnoses Date of procedure: 10/30/22 Time of procedure: 14:20 Pre-op diagnosis: severe left hip OA Post-op diagnosis: same Procedure & Clinicians Procedure: Left total hip arthroplasty posterior approach Same procedure as scheduled: Yes Indications: The patient has had progressively worsening left hip pain with radiographic changes consistent with arthritis. Non-operative management has failed and the patient has requested total hip replacement. The risks, benefits and alternatives to surgery were discussed with the patient prior to proceeding. Risks discussed included, but were not limited to, failure to relieve pain, leg length discrepancy, dislocation, stiffness, infection, nerve damage, deep venous thrombosis, pulmonary embolism, stroke, coma, heart attack, permanent paralysis and , as well as the potential need for eventual revision of the prosthetic. Surgeon: Elidia Guerrero Curator Of Photography And Prints: Alba Menon Anesthesia Type: General and Spinal Operative Notes Findings: Severe left hip osteoarthritis, adequate stability Closure Type: primary Specimen(s): none sent Prosthetic devices, grafts, tissues, transplants, or devices: Guerrero and nephew anthology a SIZE 9 STANDARD OFFSET, 58 mm cup, R3 neutral poly liner, 36 x +0 Oxinium head, two 6.5mm screws Estimated Blood Loss (mL): 250 Blood products transfused: none Procedure in detail: The patient was seen in the pre-operative area, where the patient identified the left hip as the operative site and this was marked with my initials. The patient received pre-operative antibiotics and was taken to the operating room and placed on the operative table in the right lateral decubitus position after satisfactory anesthesia. A train operations supervisor out was performed. The left leg was prepared from the ankle to the iliac crest with ChloroPrep in the usual fashion and draped through sterile drapes. A PA was used throughout the procedure for appropriate positioning of the patient's leg and careful retraction to assist in hemostasis and for specific reduction of the hip. Skilled services of the PA was essential for successful completion of the operation. The hip was approached through an approximately 20 cm incision centered over the greater trochanter and curving gently posteriorly as it went proximally. This was carried sharply to the fascia kaykay, which was divided and retracted with a self retaining retractor. The trochanteric bursa was excised with care being taken to avoid the sciatic nerve, which was identified and protected throughout the case. The short external rotators were incised and the capsulomuscular flap was raised and tagged for later repair. The hip was dislocated, and a femoral neck osteotomy performed approximately 15 mm above the lesser trochanter. Retractors were placed around the femur. The canal was opened with a box cutting osteotome, followed by a T handled reamer and a lateralizing reamer. The chili pepper broach was then used, followed by sequential broaching until there was good stability of the broach in the femur. Retractors were placed to expose the acetabulum. The labrum and central soft tissues were removed. Reaming was performed initially going up in 2 mm in crements, then 1 mm increments until good bite was obtained with an odd sized reamer. The cup 1 mm larger than the last reamer was then inserted using the appropriate anteversion guides. It was further stabilized with 2 screws. A trial neutral liner was placed. The broach was placed in the canal. A trial head and neck were then placed and the hip relocated and checked for leg length and stability. An intraoperative film confirmed the component position and no evidence of fracture. The patient was stable in the position of sleep, of squatting, and could be put through a range of motion with 45 degrees internal rotation without dislocation. At 90 degrees flexion, internal rotation to 70? was possible before dislocation. This was felt to be satisfactory and the appropriate components were opened, and the trials were removed. The acetabular liner was impacted into position. The final stem was then impacted into the prepared femoral canal. A brief Betadine soak was performed while trialing with head options. The hip was meticulously irrigated with normal saline. Finally the femoral head was impacted onto the stem. The acetabulum was cleared of all material and the hip relocated one final time. The capsulomuscular flap was then repaired to the greater trochanter though an awl hole using the tag sutures. The short external rotators were repaired with a nonabsorbable suture. The fascia kaykay was closed with Vicryl. The subcutaneous layer was closed with barbed sutures and surgical glue. An Aquacel Ag dressing was applied and the patient was taken to recovery having tolerated the procedure well. Complications: none Post-operative Condition: stable Disposition: Acute Care Plan for aftercare: The patient will be maintained on a standard total hip replacement protocol with weight bearing as tolerated and posterior hip precautions. The patient will receive Aspirin and sequential compression devices for DVT prophylaxis. The patient will be discharged home when safe for the home environment.
[2022-10-30] MEDS: CEFAZOLIN 2 GM/100 ML PREMIX 100 ML IV ×2 (14:50→23:24)
--- NOTE | 2022-10-30 15:10 | SUR.OPER ---
Lateral on a OR BOOK, head on pillow, gel axillary roll in place, bottom leg bent with gel pad under knee to foot, upper leg straight. Upper arm supported by pillows and secured over bottom arm to padded arm board. TAPE USED TO SECURE RIGHT LEG TO BED.
[2022-10-30] MEDS: BUPIVACAINE LIPOSOME 266 MG/20 ML VIAL INJ (15:17)
[2022-10-30] MEDS: BUPIVACAINE 0.25% (PF) 60 ML, EPINEPHrine 0.3 MG INJ (15:17)
[2022-10-30] MEDS: TRANEXAMIC ACID 1,000 MG VIAL 1000 MG INJ (15:20)
--- NOTE | 2022-10-30 17:00 | DI.RAD.S_ITS ---
PROCEDURE: XR HIP W PEL IF DONE LT 2V INDICATIONS: POST OP LEFT TOTAL TECHNIQUE: 2 view(s) of the hip acquired. COMPARISON: [facility], CR, XR PELVIS WITH LATERAL HIP LEFT, 07/25/2022, 14:02. [facility], CR, XR PELVIS 1-2V, 10/30/2022, 15:31. FINDINGS: Bones: Patient is status post left hip arthroplasty, with hardware components in expected positions. The hip joint appears congruent. The visualized bony structures appear intact. Soft tissues: Overlying postoperative changes are noted. No suspicious soft tissue densities. IMPRESSION: Postoperative changes from left hip arthroplasty. No definite unexpected findings. Dictated by: Néstor Stephenson M.D. on 10/31/2022 at 16:28 Approved by: Néstor Stephenson M.D. on 10/31/2022 at 16:29
[2022-10-30] MEDS: OXYCODONE IR 5 MG TABLET PO (17:35)
[2022-10-30] MEDS: ONDANSETRON 4 MG/2 ML INJ IV (17:35)
[2022-10-30] MEDS: hydrOXYzine pamoate 25 MG CAPSULE PO (17:35)
[2022-10-30] MEDS: HYDROMORPHONE 0.5 MG INJ IV ×2 (18:34→21:29)
[2022-10-30] MEDS: IBUPROFEN 400 MG TABLET PO ×2 (18:39→21:28)
[2022-10-30] MEDS: ACETAMINOPHEN 325 MG TABLET 650 MG PO (18:40)
[2022-10-30] MEDS: DOCUSATE 100 MG CAPSULE PO (21:28)
[2022-10-30] MEDS: ASPIRIN EC 81 MG TABLET PO (21:29)
[2022-10-31] MEDS: ACETAMINOPHEN 325 MG TABLET 650 MG PO ×3 (00:01→10:17)
[2022-10-31] MEDS: OXYCODONE IR 5 MG TABLET PO (00:01)
[2022-10-31 01:25] VITALS: BP 114/71; PULSE 88; RESP 18; TEMP 36.9; O2SAT 95
[2022-10-31] MEDS: IBUPROFEN 400 MG TABLET PO ×3 (01:25→09:36)
[2022-10-31] MEDS: OXYCODONE IR 10 MG TABLET PO ×2 (05:27→10:17)
[2022-10-31 05:29] VITALS: BP 114/78; PULSE 83; RESP 17; TEMP 37; O2SAT 97
[2022-10-31 06:14] LABS: Hematocrit 36.4 % (41-53); Hemoglobin 12.3 g/dL (13.5-17.5)
[2022-10-31] MEDS: CEFAZOLIN 2 GM/100 ML PREMIX 100 ML IV (06:40)
--- NOTE | 2022-10-31 07:36 | PC.NURSE ---
RN has re-educated pt throughout the night to not sit forward extending hip.
--- NOTE | 2022-10-31 07:42 | P.DS_ITS ---
History of Present Illness History of Present Illness Date Patient Seen: 10/31/22 Time Patient Seen: 07:42 Chief complaint: Left NANCY Posterior *OPB* Narrative: Operative Date/Time/Diagnoses Date of procedure: 10/30/22 Time of procedure: 14:20 Pre-op diagnosis: severe left hip OA Post-op diagnosis: same Procedure & Clinicians Procedure: Left total hip arthroplasty posterior approach Same procedure as scheduled: Yes Indications: The patient has had progressively worsening left hip pain with radiographic changes consistent with arthritis. Non-operative management has failed and the patient has requested total hip replacement. The risks, benefits and alternatives to surgery were discussed with the patient prior to proceeding. Risks discussed included, but were not limited to, failure to relieve pain, leg length discrepancy, dislocation, stiffness, infection, nerve damage, deep venous thrombosis, pulmonary embolism, stroke, coma, heart attack, permanent paralysis and , as well as the potential need for eventual revision of the prosthetic. Surgeon: Elidia Guerrero Telecommunications Line Installer: Alba Menon Anesthesia Type: General and Spinal Operative Notes Findings: Severe left hip osteoarthritis, adequate stability Closure Type: primary Specimen(s): none sent Prosthetic devices, grafts, tissues, transplants, or devices: Guerrero and nephew anthology a SIZE 9 STANDARD OFFSET, 58 mm cup, R3 neutral poly liner, 36 x +0 Oxinium head, two 6.5mm screws Estimated Blood Loss (mL): 250 Blood products transfused: none Discharge Providers Provider Discharge Date: 10/31/22 Primary care physician: PARVIZ Naidu Consults: 10/30/22 13:21 Consult to Anesthesiology Routine Comment: Consulting Provider: Anesthesiologist Reason for consultation: Regional block for post operative pain control 10/30/22 18:10 Consult to Discharge Planning Routine Comment: Consult to Physical Therapy Evaluate & Treat Comment: Physician Instructions: post op NANCY protocol Discharge provider: Tessa Peoples PA-C Summary Hospital Course Discharge Diagnosis: Left hip osteoarthritis, s/p left total hip arthroplasty Hospital Course: Mr Rodas's hospital course was unremarkable. On POD# 1 he was feeling well, c/o low back pain. He was eating and voiding without difficulty. Other than the low back pain, his pain was well-controlled with oral medication; hydroxyzine was added for low back spasm. He had not yet been evaluated by PT at the time of my visit. Exam Vital Signs (past 8 hours): - 10/31/22 01:25 10/31/22 05:29 Temperature 98.5 F 98.6 F Pulse Rate 88 83 Respiratory Rate 18 17 Blood Pressure 114/71 114/78 Pulse Oximetry 95 97 Oxygen Flow Rate 0 Oxygen Delivery Method Room Air Oxygen Flow Rate 0 Narrative Exam Narrative: 5/5 strength in hip flexors, quadriceps, hamstrings, DF, PF, EHL on left. Sensation to light touch intact throughout LLE. Calf soft, compressible, nontender and without palpable cords or masses. Aquacel dressing CDI. Objective Labs 10/31/22 05:56 Labs: Laboratory Results - last 24 hr 10/30/22 10/31/22 11:45 05:56 Hgb 12.3 L Hct 36.4 L SARS-CoV-2 (PCR) Negative [facility] Medical History (Updated 10/11/22 @ 14:11 by Jo Souza RN) Allergic rhinitis Continuous opioid dependence (11/08/14) COVID-19 (~07/2022) Encounter for monitoring Suboxone maintenance therapy (09/16/15) Encounter for wellness examination in adult Hyperlipidemia (11/08/14) Hypertension (~2015) Insomnia (04/11/15) Obesity (BMI 30-39.9) Obstructive sleep apnea (03/20/20) Osteoarthritis Surgical History (Updated 10/31/22 @ 07:59 by Tessa Peoples PA-C) [place] teeth removed Family History Father History of heart disease Loud snoring Hypertension Grandfather History of heart disease Grandmother Cancer Mother Depression Anxiety Family/Other Bipolar disorder Social History household members: spouse and children Smoking Status: Never smoker alcohol intake: current substance use type: does not use Discharge Assessment & Plan Assessment and Plan Assessment: Left hip osteoarthritis, s/p left total hip arthroplasty Plan of Treatment: Discharge after PT if PT feels it is appropriate. Pt has 87 stairs down to get to his home, so his plan is to discharge to a local hotel with his for a short time. Multimodal pain control, ASA 81mg BID x 6 weeks for VTE prophylaxis. Outpt PT, f/u in office in 2 weeks. Discharge Plan Discharge Plan Patient Disposition: Home Discharge orders & Medications Discharge Orders: Discharge (Order); Ordered 10/31/22 Ordered By: Tessa Peoples Prescriptions: New hydrocodone-acetaminophen 5-325 mg tablet 1 tab PO Q4-6H PRN (Reason: pain (scale score 7-10)) Qty: 60 0RF aspirin 81 mg Tablet,Delayed Release (Dr/Ec) 81 mg PO BID Qty: 90 0RF hydroxyzine pamoate 25 mg Capsule 25 mg PO Q4HR PRN (Reason: Muscle Spasm) Qty: 120 0RF Continued albuterol sulfate [Proventil HFA] 90 mcg/actuation HFA aerosol inhaler 1 puff inhalation Q4-6H PRN (Reason: shortness of breath or wheezing) Qty: 17 3RF Rx Instructions: Dispense Qty #2 inhalers lisinopril 20 mg tablet 20 mg PO DAILY Qty: 90 3RF Patient Comments: Takes at bedtime Rx Instructions: Take 1 tablet by mouth in the evening for blood pressure. amlodipine 10 mg tablet 10 mg PO DAILY Qty: 90 3RF Patient Comments: Takes at bedtime Rx Instructions: Take 1 tab by mouth daily for hypertension in addition to lisinopril. 4-Way Fast Acting Aerosol,[place] 2 spray INTRANASAL 8XD buprenorphine-naloxone 2-0.5 mg film 0.5 film sublingual DAILY Follow up/Referrals: Celina Donis ARNP [Primary Care Provider] - Elidia Guerrero MD [Physician] - As previously scheduled (Follow up w/ Tessa Peoples PA-C, on 11/09/2022 @ 3:30 pm at [facility] in [place].) Diet/Activity/Treatments Diet: Diet as Tolerated Activity: Weightbearing as tolerated to LLE. Posterior hip precautions. Cold/Heat Therapy: Ice to hip as needed for pain. Skin/Wound/Dressing Care Report to your healthcare provider any signs of infection, such as:: chills, fever, night sweats, unusual drainage and unusual redness Dressing: May shower. Leave Aquacel dressing in place until follow up in office. No bathing or otherwise soaking incision. Call the office if the dressing becomes saturated inside. Visit Report/Discharge Packet Instructions: DI for Hip Replacement Stand Alone Forms: Patient Portal/API, Surgery Discharge Discharge Data Primary Care Provider: Celina Donis Attending Provider: Elidia Guerrero
[2022-10-31 07:55] VITALS: BP 124/79; PULSE 84; RESP 16; TEMP 36.9; O2SAT 98
[2022-10-31] MEDS: DOCUSATE 100 MG CAPSULE PO (09:36)
[2022-10-31 09:37] VITALS: BP 124/79
[2022-10-31] MEDS: hydrOXYzine pamoate 25 MG CAPSULE PO (09:37)
[2022-10-31] MEDS: ASPIRIN EC 81 MG TABLET PO (09:37)
[2022-10-31] MEDS: lisinopriL 20 MG TABLET PO (09:37)
[2022-10-31] MEDS: AMLODIPINE 5 MG TABLET 10 MG PO (09:38)
--- NOTE | 2022-10-31 11:31 | CM.DANOTE ---
Patient is a 47 yo male who was admitted on 10/30/22 for LTHA. Pt has [employer] for insurance and his PCP Celina Donis. EMR was reviewed. Per Ortho, pt tolerated procedure well and pain seems controlled and pt can likely d/c home today if cleared by PT. PT ordered and pending. Pt resides outside of [place] with his spouse and is active and independent at baseline and works and drives. Pt and spouse plan to d/c to a local hotel for a few days as they have many stairs [place]. Plan: SW to follow for PT eval and recommendations to confirm pt safe to d/c home with spouse assist today and any further identified needs. TOMMIE Ochoa Discharge Planning/Care Management Pre-Anesthesia Assessment Start: 10/11/22 13:41 Freq: Status: Active Protocol: Document 10/11/22 13:41 CAB (Rec: 10/11/22 14:23 CAB [id number]) Pre-Anesthesia Assessment Preferred Name Bernabe Patient Information Reviewed Via Phone Assessment Comment Pt needs to do Primary Care Provider Celina Donis Seen Specialist in Last 12 Months Yes Specialist Seen Orthopedist Primary Language Divehi Debt Counselor Required No Height 177.8 cm Weight 116.573 kg Body Mass Index (BMI) 36.8 Hearing Ability Normal Visual Impairment No Limitations Visual Assist None Dentition Type Teeth, Natural Present,Teeth, Broken Barriers to Learning None Hx Anesthesia Reactions Pt has only had wisdom teeth removed, no other surgies Hx Family Anesthesia Reaction No Hx Malignant Hyperthermia No Hx Blood Transfusions No Anesthesia Review Requested No Hat Designer No alcohol intake current alcohol intake frequency a few times a week Smoking Status Never smoker Substance Use Type does not use Pain Present Pain Reported Musculoskeletal Symptoms Abnormal Gait,Difficulty Walking,Joint Pain History of Falling (Recent or History of No ) Patient is completely paralyzed or No completely immobile Prosthesis or Orthotic Device Cane Mental Status Oriented to own ability Is patient on oxygen? No Does patient have DIXON/SOB Yes: Very rare exercised induced SOB Hx Sleep Apnea No: Hx shows KWAN, pt states last test shows no KWAN Currently Taking a Beta Zeeshan No Can You Climb a Flight of Stairs Without Yes SOB Hx Chest Pain No Hx SOB Yes: Very rare exercised induced SOB Hx Syncope or Dizziness No Anti-Coagulant Therapy No Has a Paint Sprayer Sandblaster No Cardiac Testing No Hx Pacemaker/ICD No Pacemaker Rep Required? No Diet Type At Home Regular,Low Carb Dysphagia No Gastrointestinal Symptoms None Chronic UTI No Urinary Catheter Present No Hx Urinary Self Catheterization No Diabetes No Hx Drug Resistant Organism No Presence of External or Internal Medical No Devices Have you had any close contact with No someone diagnosed with COVID-19? Received a COVID vaccine? Yes Received all doses? No Marital Status Lives With spouse,children Current Living Arrangements House Number of Floors (Floors) 3 or More Floors Number of Stairs To Enter/Railing? 95 stairs Support System Child/Children,Spouse Does the Patient Have Assistance After Yes: Pt plans to stay in a [place] hotel for the 1st few days @ [place] Patient Discharge Plan Description Return Home Comment Pt advised same day to overnight length of stay per surgeon Feels Safe in Current Environment Yes Been Physically Hurt or Threatened By a No Person in Current Environment Do you have thoughts of harming yourself None or others? Are you currently considering suicide? No Do you have a plan to hurt yourself or No Plan others? Do You Have Any Spiritual Beliefs That No May Affect Your HC Choices? Do You Have Any Cultural Practices That No May Affect Your HC Choices? Comment Cand[place] Who Can We Speak to About Patient's Care Family, friends Identifying Code for Release of Patient Declines to issue Information Health Care Proxy/Next of Kin Ca () Health Care Proxy Emergency Contact Name Ca () Emergency Contact Advance Directives? No Power of Generator Repairer No PAC Instructions Durable medical equipment, Medications to take/avoid, Nasal antibiotic,No ETOH/ petroleum product on skin DOS, NPO,Pre-surgical wash,Sensory aids,Sturdy shoes/comfortable clothes,Do not bring valuables and remove jewelry
--- NOTE | 2022-10-31 13:07 | PC.NURSE ---
Pt is ready for discharge home with Spouse. Spouse is assisting him with dressing and IV has been removed. D/C instructions reviewed with Pt-discussed d/c meds, stroke education, time of last dose, reviewed showering, s/s of infection, wound care, using ice packs, no driving while on narcotics, and drink plenty of fluids to prevent constipation or dehdyration. Pt ready to be taken out via w/c by GLOBAL CLIMATE CHANGE ANALYST with Spouse and all belongings.
--- NOTE | 2022-10-31 13:26 | PT.IIE ---
Current Diagnoses Unilateral primary osteoarthritis, left hip (10/30/22) Presence of unspecified artificial hip joint (10/30/22) Surgery Performed Operation Date: 10/30/22 13:15 Actual Procedures p Total Hip Arthroplasty posterior(Left) - Elidia Guerrero MD Surgical History (Last Updated 10/11/22 @ 14:07 by Jo Souza, RN) [place] teeth removed Medical History (Last Updated 10/11/22 @ 14:11 by Jo Souza, RN) Allergic rhinitis Continuous opioid dependence (11/08/14) COVID-19 (~07/2022) Encounter for monitoring Suboxone maintenance therapy (09/16/15) Encounter for wellness examination in adult Hyperlipidemia (11/08/14) Hypertension (~2015) Insomnia (04/11/15) Obesity (BMI 30-39.9) Obstructive sleep apnea (03/20/20) Osteoarthritis Physical Therapy Inpatient Evaluation/Re-Eval M1 PT/OT-IP Prior Functional Status Start: 10/31/22 08:37 Freq: NEEDED Status: Discharge Protocol: Document 10/31/22 12:44 ES (Rec: 10/31/22 13:10 ES [id number]) Medical Review Prior Functional Status Medical History Reviewed Yes Diet/Fluid Consistency Regular Communication WFL Mobility and Gait Indep with SPC Activities of Daily Living and IADL's Indep Social History Household Members spouse,children Living Arrangements House Number of Floors (Floors) Two Floors Number of Stairs To Enter/Railing? 87 stairs with single rail and multiple landings down to the home Home Environment Standard Height Toilet,Walk in Shower,Built-In Shower Seat Home Equipment Front Wheel Walker,Straight Cane,Grab Bars Near Toilet, Grab Bars In Shower Additional Social History Comment Patient stated he will be staying in a hotel with his upon d/c for a few days, then will go home with help from friends. Friends will be supplying meals. has MS and is limited in her ability to help. M2 PT-IP Current Condition Start: 10/31/22 08:37 Freq: NEEDED Status: Discharge Protocol: Document 10/31/22 12:44 ES (Rec: 10/31/22 13:10 ES [id number]) Physical Therapy Current Condition Current Condition Evaluation Date 10/31/22 Treatment Diagnosis S/p L posterior NANCY Onset Date 10/30/22 M3 PT-IP Subjective Start: 10/31/22 08:37 Freq: NEEDED Status: Discharge Protocol: Document 10/31/22 12:44 ES (Rec: 10/31/22 13:10 ES [id number]) Subjective Physical Therapy Visit Type Type Initial Evaluation Visit Start Time 10:30 Visit Stop Time 11:05 Total Visit Minutes 35 Physical Therapy Visit Comments Patient Comments Patient reported his low back was quite painful after surgery, but now the pain is mostly in his hip. Feels worse when sitting or lying still for too long. C/o occasional shooting pain down into the leg. Patient Goals To be able to get in/out of his home. Therapy Pain Assessment Pain When Pain Assessed During Mobility Pain Present Pain Present Pain Reported Location Back Pain Management Techniques Re-positioning left hip Intensity 5 Scale Used Numeric (0 - 10) Pain Management Techniques Apply Cold,Re-positioning, Timing of Activity with Medications M4 PT-IP Mobility and Gait Start: 10/31/22 08:37 Freq: NEEDED Status: Discharge Protocol: Document 10/31/22 12:44 ES (Rec: 10/31/22 13:10 ES [id number]) PT-Bed Mobility Assessment Supine to Sit Supine to Sit Standby Assistance Sit to Supine Sit to Supine Standby Assistance Scooting Scooting to Edge of Bed Standby Assistance Scooting Up and Down in Bed Standby Assistance PT-Transfer Assessment Sit to and From Stand Sit to and from Stand Standby Assistance Equipment Transfer Assistive Device Front Wheeled Walker Orthotic/Prosthetic Devices or Brace: No Transfers Transfer Destination Chair Transfer Technique Stand Step Pivot Transfer Ability Level of Assist Standby Assistance Comments Mobility Comments Cues for maintaining hip precautions and for hand placement for safety with use of FWW. Gait Assessment Gait Gait Assistance Required: Standby Assistance Distance (Feet) 120 Able to Maintain Weight Bearing Status Yes During Gait Assistive Devices Assistive Device Gait Belt,Front Wheeled Walker Orthotic/Prosthetic Devices or Brace: No Gait Deviations General Gait Pattern Antalgic,Step-to Gait Factors Limiting Gait Function Factors Limiting Gait Function Decreased Strength,Pain Comments Gait Comments Initially ambulated with minimal WB through LLE and step-to pattern, improved somewhat with cues for heel- toe pattern and increased step length. Performed weight shifting at window sill to improve WB. Stair Climbing Assessment Comments Stair Climbing Comments Stairs not performed due to decreased WB tolerance; patient will not have stairs initially at d/c. Discussed sequencing and patient demonstrated good understanding of instructions. Educated patient to perform step-to pattern on stairs and not to sit scoot in order to comply with posterior precautions. PT-Balance Assessment Sitting Balance and Reactions Static Sitting Balance Ability Good Dynamic Sitting Balance Ability Good Standing Balance and Reactions Static Standing Balance Ability Good Dynamic Standing Balance Ability Fair Device Used FWW M5 PT-IP Objective Assessments Start: 10/31/22 08:37 Freq: NEEDED Status: Discharge Protocol: Document 10/31/22 12:44 ES (Rec: 10/31/22 13:10 ES [id number]) Orientation Orientation/Cognition Level of Alertness Alert Orientation Name,Age,Birthday,Month,Date, Year,Day of Week,Place, Situation Language Function Ability No Deficits Noted Safety Awareness Understands Safety Issues Memory Description No Deficits Noted Gross Range of Motion Upper Extremity ROM Assessment Within Functional Limits Lower Extremity ROM Assessment Left Impaired Impairments Hip limited 2/2 surgery/ precautions Strength Upper Extremity Strength Assessment Within Functional Limits Lower Extremity Strength Assessment Left Impaired Hip Difficulty with hip flexion, abd/add Knee WFL Ankle WFL Coordination Assessment Gross Coordination Gross Coordination WNL Sensation Assessment Sensation Gross Sensation WNL Muscle Tone Muscle Tone WNL Yes M6 PT-IP Treatment Start: 10/31/22 08:37 Freq: NEEDED Status: Discharge Protocol: Document 10/31/22 12:44 ES (Rec: 10/31/22 13:10 ES [id number]) Physical Therapy Treatment Exercises Exercises Ankle Pumps,Gluteal Sets,Quad Sets,Heel Slides,Supine Hip Abduction Education Education Provided Precautions,Weight Bearing Status,Post-Op Packet,Safety M7 PT-IP Assessment and Plan Start: 10/31/22 08:37 Freq: NEEDED Status: Discharge Protocol: Document 10/31/22 12:44 ES (Rec: 10/31/22 13:10 ES [id number]) PT Summary Assessment and Plan Potential Rehabilitation Potential Excellent Status of Condition at Evaluation Stable Summary Impairments Pain,ROM,Strength,Transfers, Gait Assessment Summary Patient is a 47 year old male s/p L NANCY who presents with impaired functional mobility due to the above impairments. He demonstrated decreased WB through operative LLE, improved with cues and weight shifting activity. He reported decreased pain with activity and with sitting in recliner vs supine in bed. He demonstrates sufficient mobility with use of FWW to be able to d/c to hotel with family prior to returning home , as long as pain management continues to improve. Recommend leg assistant professor of english or belt at home to assist LLE in/out of bed; patient educated on this. Goals Bed Mobility Goal Independent Transfer Goal Independent Gait Goal Independent Gait Distance 150 Other Goals Patient will be able to ascend /descend 1 stair with single rail with CGA to prepare for home stairs. Days to Meet Goals 2 Frequency of Treatment Frequency Of Treatment Twice a Day Treatment Plan Physical Therapy Treatment Plan Bed Mobility Training,Transfer Training,Gait Training, Therapeutic Exercise,Post Op Education Other Recommendations and Next Treatment Stairs as indicated Focus Weight Bearing Status Weight Bearing Status Weight Bear as Tolerated Recommendations To Nursing Amount of Assist Needed Standby Assistance Discharge Recommendations PT Discharge Recommendations Home with Assistance, Outpatient PT Other Discharge Recommendations Recommend family obtain leg assistant professor of english Transportation Needs at Discharge Private Vehicle
== END 2022-10-31 13:12 | disposition home or self-care (01) ==
LOC: OR 11:14 → AC 11:19
PROVIDERS: Family Provider Nurse Practitioner; PCP Nurse Practitioner; Referring Provider Nurse Practitioner; Visit Provider Orthopaedic Surgery
PROC: 0SRB0JZ Replacement of Left Hip Joint with Synthetic Substitute, Open Approach (ICD-10-PCS; CPT 27130; principal; 2022-10-30 13:15)
DX: M16.12 Unilateral primary osteoarthritis, left hip (principal); Z20.822 Contact with and (suspected) exposure to COVID-19; I10 Essential (primary) hypertension
CPT/HCPCS: 27130; 36415; 72170; 73502; 85014; 85018; 87635; 97161; C1776; C9803; C9290; J0171; J0690; J1170; J2250; J2405; J3010

== ENCOUNTER 2022-11-02 21:59 | Emergency (ER) | payer OTHER, SELFPAY ==
[2022-10-30 21:36] VITALS: BMI 35.2
[2022-11-02 22:06] VITALS: BP 131/71; PULSE 89; RESP 18; TEMP 36.5; O2SAT 99; BMI 36.4
[2022-11-02 23:29] LABS: Add Manual Diff / Slide Review NO; Basophils Absolute Auto 100 /uL (0-100); Basophils Percent Auto 0.6 % (0-2); Eosinophils Absolute Auto 200 /uL (0-450); Eosinophils Percent Auto 1.4 % (2-4); Hematocrit 32.3 % (41-53); Hemoglobin 10.9 g/dL (13.5-17.5); Lymphocytes Absolute Auto 2000 /uL (1100-4500); Lymphocytes Percent Auto 18.4 % (25-40); Mean Corpuscular HGB Conc 33.6 % (30-36); Mean Corpuscular Hemoglobin 28.8 PG (26-34); Mean Corpuscular Volume 85.8 fL (80-100); Monocytes Absolute Auto 1100 /uL (0-900); Monocytes Percent Auto 9.9 % (3-14); Neutrophils Absolute Auto 7700 /uL (1500-7000); Neutrophils Percent Auto 69.7 % (50-75); Platelet Count 240 X10^3/uL (150-400); Red Blood Cell Count 3.77 X10^6/uL (4.5-5.9); Red Cell Distribution Width 14.2 % (11.6-14.8); White Blood Cell Count 11.1 X10^3/uL (4.5-11.0)
[2022-11-02 23:30] LABS: BUN Creatinine Ratio 17.9 (6-22); Blood Urea Nitrogen 17 mg/dL (9-20); Calcium 8.9 mg/dL (8.4-10.2); Carbon Dioxide 29 mmol/L (22-32); Chloride 104 mmol/L (98-107); Estimated Glomerular Filt Rate > 60 mL/min (>60); Glucose 135 mg/dL (70-100); HEMOLYSIS < 15 (0-50); Potassium 3.9 mmol/L (3.4-5.1); Sodium 138 mmol/L (137-145)
--- NOTE | 2022-11-02 23:36 | DI.RAD.S_ITS ---
PROCEDURE: XR CHEST 1V INDICATIONS: fever eval for PNA TECHNIQUE: One view of the chest was acquired. COMPARISON: [facility], CR, XR CHEST 1V, 11/13/2020, 22:49. [facility], CR, XR CHEST 1V, 02/10/2020, 0:05. FINDINGS: Surgical changes and devices: None. Lungs and pleura: Low lung volumes, limiting evaluation. No dense consolidation or pleural effusion. Mediastinum: Mediastinal contours appear normal. Heart size is normal. Bones and chest wall: No suspicious bony lesions. Overlying soft tissues appear unremarkable. IMPRESSION: Low lung volumes, limiting evaluation. No acute radiographic abnormality. Dictated by: Federico Stringer M.D. on 11/03/2022 at 0:12 Approved by: Federico Stringer M.D. on 11/03/2022 at 0:13
--- NOTE | 2022-11-02 23:36 | ED_ITS ---
HPI - Extremity Injury (Lower) General Chief Complaint: Extremity Injury, Lower Stated Complaint: Hip replacement t-3, Fever, Site swelling Time Seen by Provider: 11/02/22 23:26 Source: patient Mode of arrival: Wheelchair Limitations: no limitations History of Present Illness HPI Narrative: Patient is a 47-year-old male. Is 3 days from a left total hip arthroplasty. He states that just under 24 hours ago he started having increasing pain and swelling to his left lower extremity. He denies chest pain and no shortness of breath. He also states he had a fever. He has been ambulatory with a walker per the instructions of the orthopedic surgeon. He contacted the on-call nurse and then the orthopedic provider who asked that he come to the emergency department for concerns of a blood clot in his leg. Denies any urinary symptoms. Related Data Home Medications Medication Instructions Recorded Confirmed buprenorphine 2 mg-naloxone 0.5 mg 0.5 film sublingual DAILY 10/30/22 10/30/22 sublingual film [id number] 2 spray intranasal 8XD 10/30/22 10/30/22 nasal spray aerosol Previous Rx's Medication Instructions Recorded albuterol sulfate 90 mcg/actuation 1 puff inhalation Q4-6H PRN 10/14/19 aerosol inhaler (Proventil HFA) shortness of breath or wheezing #17 grams amlodipine 10 mg tablet 10 mg PO DAILY #90 tabs 01/02/22 lisinopril 20 mg tablet 20 mg PO DAILY High blood pressure 01/02/22 #90 tabs aspirin 81 mg tablet,delayed 81 mg PO BID #90 tabs 10/31/22 release hydrocodone 5 mg-acetaminophen 325 1 tab PO Q4-6H PRN pain (scale 10/31/22 mg tablet score 7-10) #60 tabs hydroxyzine pamoate 25 mg capsule 25 mg PO Q4HR PRN Muscle Spasm 10/31/22 #120 caps Allergies Allergy/AdvReac Type Severity Reaction Status Date / Time latex [LATEX] Allergy Unknown ANAPHYLAXSI Verified 10/30/22 12:11 S Review of Systems Review of Systems ROS Unobtainable: All systems reviewed & are unremarkable except as noted in HPI and below Patient History Medical History Allergic rhinitis Continuous opioid dependence (11/08/14) COVID-19 (~07/2022) Encounter for monitoring Suboxone maintenance therapy (09/16/15) Encounter for wellness examination in adult Hyperlipidemia (11/08/14) Hypertension (~2015) Insomnia (04/11/15) Obesity (BMI 30-39.9) Obstructive sleep apnea (03/20/20) Osteoarthritis Surgical History (Updated 10/31/22 @ 07:59 by Tessa Peoples PA-C) [place] teeth removed Family History Father History of heart disease Loud snoring Hypertension Grandfather History of heart disease Grandmother Cancer Mother Depression Anxiety Family/Other Bipolar disorder Social History household members: spouse and children Smoking Status: Never smoker alcohol intake: current substance use type: does not use Smoking Status: Never smoker alcohol intake frequency: a few times a week Substance Use Type: does not use Exam Initial Vital Signs Initial Vital Signs: Vital Signs Temperature 97.7 F 11/02/22 22:06 Pulse Rate 89 11/02/22 22:06 Respiratory Rate 18 11/02/22 22:06 Blood Pressure 131/71 11/02/22 22:06 Pulse Oximetry 99 11/02/22 22:06 Oxygen Delivery Method Room Air 11/02/22 22:06 Const General: cooperative, comfortable and No ill appearing HENMT Head: normal to inspection and normocephalic Resp Effort & Inspection: normal respiratory effort Auscultation: clear to auscultation bilaterally Cardio Rate: regular rate Rhythm: regular rhythm Skin Other: Patient does have the cleaning solution that discolored as his left lower extremity. The surgical dressing over the incision site as well without surrounding erythema or warmth. The surgical dressing is dry and intact. Neuro Sensory Exam: no sensory deficits noted Extrem Other: Patient does have circumferential swelling of his left lower extremity. Course Orders Ordered: ED Orders 11/02/22 23:10 Basic Metabolic Panel Stat C-Reactive Protein Quant Stat Complete Blood Count AUTO DIFF Stat Erythrocyte Sedimentation Rate Stat 11/02/22 23:29 Blood Culture Stat 11/02/22 23:36 US periph venous low extrem lt Stat XR chest 1V Stat 11/03/22 00:29 XR hip w pel if done LT 2V Stat Vital Signs Vital signs: Vital Signs - 8 hr 04/21/23 22:06 Temperature 97.7 F Pulse Rate 89 Respiratory Rate 18 Blood Pressure 131/71 Pulse Oximetry 99 Oxygen Delivery Method Room Air MDM - Extremity Injury (Lower) Lab Data Attestation: I reviewed the patient's lab results. 11/02/22 23:10 11/02/22 23:10 Labs: Lab Results 11/02/22 11/02/22 Range/Units 23:10 23:10 WBC 11.1 H (4.5-11.0) X10^3/uL RBC 3.77 L (4.5-5.9) X10^6/uL Hgb 10.9 L (13.5-17.5) g/dL Hct 32.3 L (41-53) % MCV 85.8 (80-100) fL MCH 28.8 (26-34) PG MCHC 33.6 (30-36) % RDW 14.2 (11.6-14.8) % Plt Count 240 (150-400) X10^3/uL Neut % (Auto) 69.7 (50-75) % Lymph % (Auto) 18.4 L (25-40) % Mcdowell % (Auto) 9.9 (3-14) % Eos % (Auto) 1.4 L (2-4) % Baso % (Auto) 0.6 (0-2) % Neut # (Auto) 7700 H (5451-2187) /uL Lymph # (Auto) 2000 (9541-7736) /uL Mcdowell # (Auto) 1100 H (0-900) /uL Eos # (Auto) 200 (0-450) /uL Baso # (Auto) 100 (0-100) /uL ESR 67 H (0-15) MM/HR Sodium 138 (137-145) mmol/L Potassium 3.9 (3.4-5.1) mmol/L Chloride 104 (98-107) mmol/L Carbon Dioxide 29 (22-32) mmol/L BUN 17 (9-20) mg/dL Creatinine 0.95 (0.66-1.25) mg/dL Estimated GFR > 60 (>60) mL/min BUN/Creatinine Ratio 17.9 (6-22) Glucose 135 H (70-100) mg/dL Calcium 8.9 (8.4-10.2) mg/dL C-Reactive Protein 18.3 H (<1.0) mg/dL Urine Dip Bedside Urine Glucose Negative Bedside Urine Bilirubin - Negative Bedside Urine Ketone - Negative Urine Specific [place] 1.010 Bedside Urine Occult Blood - Negative Bedside Urine pH 6.0 Bedside Urine Protein - Negative Bedside Urine Urobilinogen - Negative Bedside Urine Nitrite - Negative Bedside Urine Leukocytes - Negative Esterase Imaging Data US - DVT: Radiologist's Impression: PROCEDURE:? US PERIPH VENOUS LOW EXTREM LT ? INDICATIONS:? PAIN, SWELLING 4 DAYS POST LEFT HIP REPLACEMENT ? TECHNIQUE:? Real-time imaging, as well as color and pulse Doppler interrogation, were performed of the lower extremity deep veins from the inguinal ligament to the popliteal fossa.? ? COMPARISON:? None. ? FINDINGS:? The common femoral, femoral and popliteal veins are normally compressible, and free of intraluminal thrombus.? Color and pulse Doppler demonstrate normal phasic intraluminal flow.? There is normal augmentation response to distal compression maneuver. ? ? IMPRESSION:? Negative examination for DVT. Chest x-ray: Radiologist's Impression: PROCEDURE:? XR CHEST 1V ? INDICATIONS:? fever eval for PNA ? TECHNIQUE:? One view of the chest was acquired.? ? COMPARISON:? [facility], , XR CHEST 1V, 11/13/2020, 22:49.? [facility], CR, XR CHEST 1V, 02/10/2020, 0:05. ? FINDINGS:? ? Surgical changes and devices:? None.? ? Lungs and pleura:? Low lung volumes, limiting evaluation.? No dense consolidation or pleural effusion. ? Mediastinum:? Mediastinal contours appear normal.? Heart size is normal.? ? Bones and chest wall:? No suspicious bony lesions.? Overlying soft tissues appear unremarkable.? ? IMPRESSION:? Low lung volumes, limiting evaluation.? No acute radiographic abnormality. Extremity x-ray #1: Radiologist's Impression: PROCEDURE:? XR HIP W PEL IF DONE LT 2V ? INDICATIONS:? NANCY saturday with increase pain ? TECHNIQUE:? 2 views of the hip were acquired.? ? COMPARISON:? [facility], CR, XR HIP W PEL IF DONE LT 2V, 10/30/2022, 17:10. ? FINDINGS:? ? Bones:? Similar appearance of the left hip arthroplasty. ? Soft tissues:? Postoperative changes are present. ? IMPRESSION:? Postoperative appearance of the left hip arthroplasty.? No acute radiographic abnormality.? If further evaluation is necessary, consider cross- sectional imaging or bone scan. [facility] Narrative Medical decision making narrative: Patient is afebrile. His DVT ultrasound is negative. Chest x-ray is unremarkable. X-ray of his left hip is unremarkable as well. Skin changes over the area are appropriate for this stage after his surgery. I did consider potential infectious source however does not appear to be pneumonia, urinary source. I did not remove the surgical bandage because it was clean and intact and the skin around the area is reassuring that there was not an infection in the area. I did discuss this with him. He does have an elevation in his ESR and CRP in his slight leukocytosis but I suspect that this is postoperative. Also discuss this with him as well. There is no indication for admission to the hospital or antibiotics. He is a follow-up with his orthopedic provider the middle of next week. Advised that he continue to follow all of the postoperative instructions given to him by the orthopedic surgeon. I did inform him that if his symptoms were to worsen over the next couple days that he does need to return to the emergency department for further evaluation. Patient expressed understanding and agreement this plan. Discharge Plan Departure Patient Disposition: Home Clinical Impression: Postoperative complication, Localized swelling of lower leg Activity Restrictions/Additional Instructions: Recommend that you continue to take all of your medications as directed and follow all of the postoperative instructions given to you by the orthopedic surgeon. Also recommend that you keep all of your scheduled medical appointments. If you start to develop new symptoms or continued fevers or worsening pain or drainage or redness around the surgery site please return to the emergency department for further evaluation. Prescriptions: No Action albuterol sulfate [Proventil HFA] 90 mcg/actuation HFA aerosol inhaler 1 puff inhalation Q4-6H PRN (Reason: shortness of breath or wheezing) Qty: 17 3RF Rx Instructions: Dispense Qty #2 inhalers lisinopril 20 mg tablet 20 mg PO DAILY Qty: 90 3RF Patient Comments: Takes at bedtime Rx Instructions: Take 1 tablet by mouth in the evening for blood pressure. amlodipine 10 mg tablet 10 mg PO DAILY Qty: 90 3RF Patient Comments: Takes at bedtime Rx Instructions: Take 1 tab by mouth daily for hypertension in addition to lisinopril. [id number] Aerosol,[place] 2 spray INTRANASAL 8XD buprenorphine-naloxone 2-0.5 mg film 0.5 film sublingual DAILY aspirin 81 mg Tablet,Delayed Release (Dr/Ec) 81 mg PO BID Qty: 90 0RF hydroxyzine pamoate 25 mg Capsule 25 mg PO Q4HR PRN (Reason: Muscle Spasm) Qty: 120 0RF hydrocodone-acetaminophen 5-325 mg tablet 1 tab PO Q4-6H PRN (Reason: pain (scale score 7-10)) Qty: 60 0RF Referrals: Celina Donis ARNP [Primary Care Provider] - Stand Alone Forms: Patient Portal/API
--- NOTE | 2022-11-02 23:36 | DI.US.S_ITS ---
PROCEDURE: US PERIPH VENOUS LOW EXTREM LT INDICATIONS: PAIN, SWELLING 4 DAYS POST LEFT HIP REPLACEMENT TECHNIQUE: Real-time imaging, as well as color and pulse Doppler interrogation, were performed of the lower extremity deep veins from the inguinal ligament to the popliteal fossa. COMPARISON: None. FINDINGS: The common femoral, femoral and popliteal veins are normally compressible, and free of intraluminal thrombus. Color and pulse Doppler demonstrate normal phasic intraluminal flow. There is normal augmentation response to distal compression maneuver. IMPRESSION: Negative examination for DVT. Dictated by: Federico Stringer M.D. on 11/03/2022 at 0:42 Approved by: Federico Stringer M.D. on 11/03/2022 at 0:42
[2022-11-02 23:42] LABS: C-Reactive Protein Quant 18.3 mg/dL (<1.0)
[2022-11-02 23:55] LABS: Erythrocyte Sedimentation Rate 67 MM/HR (0-15)
--- NOTE | 2022-11-03 00:29 | DI.RAD.S_ITS ---
PROCEDURE: XR HIP W PEL IF DONE LT 2V INDICATIONS: NANCY saturday with increase pain TECHNIQUE: 2 views of the hip were acquired. COMPARISON: [facility], [place], XR HIP W PEL IF DONE LT 2V, 10/30/2022, 17:10. FINDINGS: Bones: Similar appearance of the left hip arthroplasty. Soft tissues: Postoperative changes are present. IMPRESSION: Postoperative appearance of the left hip arthroplasty. No acute radiographic abnormality. If further evaluation is necessary, consider cross-sectional imaging or bone scan. Dictated by: Federico Stringer M.D. on 11/03/2022 at 1:13 Approved by: Federico Stringer M.D. on 11/03/2022 at 1:15
[2022-11-03 01:46] VITALS: BP 112/80; PULSE 70; RESP 20; TEMP 36.3; O2SAT 98
== END 2022-11-03 01:48 | disposition home or self-care (01) ==
PROVIDERS: Emergency Provider Emergency Medicine; Family Provider Nurse Practitioner; PCP Nurse Practitioner
DX: Z98.890 Other specified postprocedural states (principal); R22.40 Localized swelling, mass and lump, unspecified lower limb; Z96.642 Presence of left artificial hip joint; R50.9 Fever, unspecified; R79.89 Other specified abnormal findings of blood chemistry
CPT/HCPCS: 36415; 71045; 73502; 80048; 81003; 85025; 85651; 86140; 87040; 93971; 99281; 99284

== ENCOUNTER → 2023-09-11 12:33 | Outpatient (CLI) | payer OTHER, SELFPAY ==
[2022-10-30 21:36] VITALS: BMI 35.2
[2023-09-11 12:59] LABS: Add Manual Diff / Slide Review NO; Basophils Absolute Auto 100 /uL (0-100); Basophils Percent Auto 0.9 % (0-2); Eosinophils Absolute Auto 100 /uL (0-450); Eosinophils Percent Auto 0.9 % (2-4); Hematocrit 44.1 % (41-53); Hemoglobin 15.1 g/dL (13.5-17.5); Lymphocytes Absolute Auto 1900 /uL (1100-4500); Lymphocytes Percent Auto 19.8 % (25-40); Mean Corpuscular HGB Conc 34.3 % (30-36); Mean Corpuscular Hemoglobin 29.3 PG (26-34); Mean Corpuscular Volume 85.6 fL (80-100); Monocytes Absolute Auto 800 /uL (0-900); Monocytes Percent Auto 8.3 % (3-14); Neutrophils Absolute Auto 6600 /uL (1500-7000); Neutrophils Percent Auto 70.1 % (50-75); Platelet Count 249 X10^3/uL (150-400); Red Blood Cell Count 5.16 X10^6/uL (4.5-5.9); Red Cell Distribution Width 14.2 % (11.6-14.8); White Blood Cell Count 9.4 X10^3/uL (4.5-11.0)
[2023-09-11 13:19] LABS: Alanine Aminotransferase 35 IU/L (<50); Albumin 4.9 g/dL (3.5-5.0); Albumin Globulin Ratio 1.4 (1.0-2.8); Alkaline Phosphatase 60 U/L (38-126); Aspartate Aminotransferase 29 IU/L (17-59); BUN Creatinine Ratio 14.6 (6-22); Bilirubin Total 0.6 mg/dL (0.2-1.3); Blood Urea Nitrogen 13 mg/dL (9-20); Calcium 9.6 mg/dL (8.4-10.2); Carbon Dioxide 34 mmol/L (22-32); Chloride 106 mmol/L (98-107); Cholesterol 219 mg/dL (140-199); Estimated Glomerular Filt Rate > 60 mL/min (>60); Globulin 3.6 g/dL (1.7-4.1); Glucose 99 mg/dL (70-100); HDL Cholesterol 48 mg/dL (40-60); HEMOLYSIS < 15 (0-50); LDL Cholesterol Calculated 153 mg/dL (<100); Potassium 4.3 mmol/L (3.4-5.1); Sodium 138 mmol/L (137-145); Total Protein 8.5 g/dL (6.3-8.2); Triglycerides 91 mg/dL (35-150)
[2023-09-11 13:28] LABS: Erythrocyte Sedimentation Rate 4 MM/HR (0-15)
[2023-09-11 13:31] LABS: Free T3, Triiodothyronine Free 4.29 pg/mL (2.77-5.27); Free T4, Direct Thyroxine 0.94 ng/dL (0.78-2.19)
[2023-09-11 13:45] LABS: Thyroid Stimulating Hormone 1.26 uIU/mL (0.47-4.68)
[2023-09-11 16:39] LABS: Creatinine Urine Random 174.6 mg/dL
[2023-09-11 16:44] LABS: Microalbumi Creatinin Ratio Ur 58.9 ug/mg CR (<30); Microalbumin Urine Random 10.3 mg/dL (0-1.6)
[2023-09-12 17:05] LABS: HIV 1 & 2 Ab/Ag 4th Gen Combo NEGATIVE (NEGATIVE); Hep C Virus Ab w/Reflex Quant NEGATIVE s/c (NEGATIVE)
== END ==
PROVIDERS: Physician Assistant; Family Provider Nurse Practitioner; PCP Nurse Practitioner; Referring Provider Nurse Practitioner; Visit Provider Nurse Practitioner
DX: Z00.00 Encounter for general adult medical examination without abnormal findings (principal); Z11.59 Encounter for screening for other viral diseases; Z11.4 Encounter for screening for human immunodeficiency virus [HIV]; L29.9 Pruritus, unspecified
CPT/HCPCS: 80053; 80061; 82043; 82570; 84439; 84443; 84481; 85025; 85651; 86803; 87389

== ENCOUNTER 2025-04-10 16:38 | Emergency (ER) | payer OTHER, SELFPAY ==
[2022-10-30 21:36] VITALS: BMI 35.2
[2025-04-10 16:55] VITALS: BP 185/91; PULSE 96; RESP 16; TEMP 36.6; O2SAT 98; BMI 35.2
[2025-04-10] MEDS: IBUPROFEN 400 MG TABLET PO (17:09)
--- NOTE | 2025-04-10 17:11 | ED.LOWEXIN ---
HPI - Extremity Injury (Lower) General Chief Complaint: Extremity Injury, Lower Stated Complaint: GLF injury to left leg Time Seen by Provider: 04/10/25 16:43 Source: patient Mode of arrival: Ambulatory History of Present Illness HPI Narrative: 50-year-old gentleman with a history of hypertension presents complaining of left calf pain. He was going down the stairs, slipped slightly with his right foot caught himself with his left foot heard a very loud pop and experienced severe pain in the middle portion of his calf. He is not able to walk at this time. He is not having bony ankle or knee pain. Related Data Previous Rx's ?Medication ?Instructions ?Recorded albuterol sulfate 90 mcg/actuation 1 puff inhalation Q4-6H PRN 10/14/19 aerosol inhaler (Proventil HFA) shortness of breath or wheezing #17 grams clobetasol-emollient 0.05 % 1 applic topical BID PRN itching 11/06/23 topical cream #30 grams amlodipine 5 mg tablet 5 mg PO DAILY #90 tabs 03/12/25 losartan 50 mg-hydrochlorothiazide 1 tab PO DAILY #90 tabs 03/12/25 12.5 mg tablet oxycodone-acetaminophen 5 mg-325 1 tab PO Q6H PRN pain #30 tabs 04/10/25 mg tablet Allergies Allergy/AdvReac Type Severity Reaction Status Date / Time latex (LATEX) Allergy Unknown ANAPHYLAXSI Verified 04/10/25 16:55 S amlodipine AdvReac Mild ankle Verified 04/10/25 16:55 swelling at 10mg dose lisinopri AdvReac Intermediate Cough Uncoded 04/10/25 16:55 Review of Systems Review of Systems Narrative: Pertinent positive and negative findings as per HPI Patient History Medical History (Updated 04/10/25 @ 17:21 by Brandie Thrasher MD) Obesity (BMI 30-39.9) Osteoarthritis COVID-19 (~07/2022) Obstructive sleep apnea (03/20/20) Encounter for wellness examination in adult Allergic rhinitis Hypertension (~2015) Encounter for monitoring Suboxone maintenance therapy (09/16/15) Insomnia (04/11/15) Continuous opioid dependence (11/08/14) Hyperlipidemia (11/08/14) Surgical History (Updated 11/10/23 @ 20:41 by PARVIZ Naidu) [place] teeth removed Family History Father History of heart disease Loud snoring Hypertension Grandfather History of heart disease Grandmother Cancer Mother Depression Anxiety Family/Other Bipolar disorder Social History household members: spouse and children Smoking Status: Unknown if ever smoked alcohol intake: current substance use type: does not use Smoking Status: Unknown if ever smoked alcohol intake frequency: a few times a week Exam Initial Vital Signs Initial Vital Signs: Vital Signs Temperature 98 F 04/10/25 16:55 Pulse Rate 96 H 04/10/25 16:55 Respiratory Rate 16 04/10/25 16:55 Blood Pressure 185/91 H 04/10/25 16:55 Pulse Oximetry 98 04/10/25 16:55 Oxygen Delivery Method Room Air 04/10/25 16:55 General: Alert appropriate in no acute distress Respiratory: Able to speak in full sentences, no obvious respiratory distress Skin: No obvious rashes, warm and dry Neurologic: Grossly intact no obvious asymmetries or abnormalities Psych: appropriate insight and affect, cooperative Extremity: Left lower extremity is examined. There is no pain tenderness or ligamentous abnormality appreciated in the knee. No pain tenderness or instability of the ankle. He has exquisite pain mid calf seeming to localized to the medial portion of the calf. There is some swelling, no obvious bruising or contusion. With palpation of the upper portion of the Achilles tendon he has a appropriate movement of the heel. There is no Achilles tendon step-off. Bedside ultrasound shows an intact Achilles tendon it does appear that the medial gastroc muscle has torn. The underlying soleus muscle seems appropriate. Course Orders Ordered: Discontinued Medications Ibuprofen (Ibuprofen 400 Mg Tablet) 400 mg PO NOW ONE Stop: 04/10/25 16:49 Last Admin: 04/10/25 17:09 Dose: 400 mg Documented By: MIGNON Oxycodone HCl (Oxycodone Ir 5 Mg Tablet) 5 mg PO NOW ONE Stop: 04/10/25 16:49 Last Admin: 04/10/25 17:08 Dose: 5 mg Documented By: MIGNON Vital Signs Vital signs: Vital Signs - 8 hr 04/10/25 16:55 Temperature 98 F Pulse Rate 96 H Respiratory Rate 16 Blood Pressure 185/91 H Pulse Oximetry 98 Oxygen Delivery Method Room Air MDM - Extremity Injury (Lower) MDM Narrative Medical decision making narrative: 50-year-old gentleman who miss stepped and experienced a loud pop and severe pain in his left calf. There was no ankle or knee injury pain or abnormality. Achilles tendon seems to be in place on physical exam Mid calf tenderness with swelling no obvious bruising. Ultrasound suggests the medial portion of the left gastroc muscle has torn and is the source of his pain Denis wrap for support it is placed by me. He was neurovascularly intact pre and post placement. The compression was helpful in controlling pain We discussed anticipated course of symptoms including increasing pain over the 1st 48 hours and likely taking a total of 6 weeks before pain completely resolves. Did suggest that he schedule an appointment with his orthopedic surgeon. He has seen Dr. Guerrero for previous hip surgeries and we will call the office on Saturday He is given a dose of ibuprofen and oxycodone, he had taken Tylenol prior to arrival. Discussed pain medications, prescriptions will be given No indication for advanced imaging or further workup at this time he is safe for discharge Discharge Plan Departure Patient Disposition: Home Clinical Impression: Gastrocnemius muscle tear Qualifiers: Encounter type: initial encounter Laterality: left Qualified Code(s): S86.112A - Strain of other muscle(s) and tendon(s) of posterior muscle group at lower leg level, left leg, initial encounter Instructions: DI for Calf Muscle Strain Activity Restrictions/Additional Instructions: Thank you for coming into It looks like you tore your calf muscle, the middle portion of the on the left side. I do not think you tore your Achilles tendon and does not appear that you injured her knee or your ankle With the calf muscle, you are gastrocnemius, in his going to hurt more over the 1st 48 hours. You are going to have swelling and spasm. Not walking on that leg for up to 2 weeks will likely be helpful. As the pain is decreasing you will find that toe-touch walking is a bit easier. Allow pain to guide you as to how much activity you do. The more you do, the more pain swelling and spasm you will have in the evening until the leg has healed. You may find that getting a rolling knee walker is very helpful and can significantly increase overall my ability. Use crutches as needed Using 400 mg of ibuprofen (2 psev-zxf-ajqokvm pills) and 1 Tylenol every 6 hours can be very helpful in controlling pain. For severe pain use 400 mg of ibuprofen and one Percocet. Percocet is a narcotic and will cause constipation. 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 Guerrero for follow up Prescriptions: New oxycodone-acetaminophen 5-325 mg tablet 1 tab PO Q6H PRN (Reason: pain) Qty: 30 0RF No Action albuterol sulfate [Proventil HFA] 90 mcg/actuation HFA aerosol inhaler 1 puff inhalation Q4-6H PRN (Reason: shortness of breath or wheezing) Qty: 17 3RF Rx Instructions: Dispense Qty #2 inhalers losartan-hydrochlorothiazide 50-12.5 mg tablet 1 tab PO DAILY Qty: 90 1RF amlodipine 5 mg tablet 5 mg PO DAILY Qty: 90 1RF clobetasol-emollient 0.05 % cream 1 applic topical BID PRN (Reason: itching) Qty: 30 3RF Rx Instructions: Apply to itchy rash up to twice daily as needed for itching, don't use for longer than 2 weeks at a time. Referrals: Morro Dominique MD [Primary Care Provider, Family Practice] Stand Alone Forms: Patient Portal/API
== END 2025-04-10 17:57 | disposition home or self-care (01) ==
PROVIDERS: Emergency Provider Emergency Medicine; PCP Family Medicine
DX: S86.112A Strain of other muscle(s) and tendon(s) of posterior muscle group at lower leg level, left leg, initial encounter (principal); W01.0XXA Fall on same level from slipping, tripping and stumbling without subsequent striking against object, initial encounter
CPT/HCPCS: 99283